=== PATIENT | male | born 1960 | race Caucasian/White ===

== ENCOUNTER 2019-11-19 09:03 | Outpatient (CLI) | payer MEDICARE, SELFPAY ==
--- NOTE | 2019-11-19 09:19 | XR_ITS ---
WS: [id number] Right shoulder, 2 views, 11/19/2019 Clinical Data: RIGHT SHOULDER PAIN Comparison: None. Findings: Patient has had a right total shoulder prosthesis inserted. The AC joint is normal. The prosthesis i s in good position with no loosening. The adjacent right clavicle, right scapula and right ribs are nonremarkable. The soft tissues are nor mal. XR/XR shoulder RT min 2V* [id number] Impression: Right shoulder arthroplasty.
== END 2019-11-19 09:04 | disposition home or self-care (01) ==
LOC: RAD 09:13
PROVIDERS: Family Provider Family Medicine; Visit Provider Orthopaedic Surgery
DX: M25.511 Pain in right shoulder (principal); Z96.611 Presence of right artificial shoulder joint
CPT/HCPCS: 73030

== ENCOUNTER → 2021-05-05 14:52 | Outpatient (BNVA) | payer MEDICARE, SELFPAY | PROVIDERS: Family Provider Family Medicine; Visit Provider Surgery | DX: Z20.822 Contact with and (suspected) exposure to COVID-19 (principal); Z01.812 Encounter for preprocedural laboratory examination | CPT/HCPCS: 87635 ==

== ENCOUNTER 2021-05-10 07:28 | Day surgery (SDC) | payer MEDICARE, SELFPAY ==
[2021-05-08 13:10] VITALS: BMI 39.5
--- NOTE | 2021-05-10 07:44 | P.ANESASSM_ITS ---
Pre-Anesthetic Assessment Pre-Anesthetic Assessment: Height/Weight: Height 1.85 m Weight 136.078 kg Preop Diagnosis: polyps Proposed Procedure: Operation Date: 05/10/21 08:45 Proposed Procedures p Colonoscopy 47583 Z12.11(Not Applicable) - Tae Correa MD Familial anesthetic complications: None Was Beta Isaías taken within 24 hours: Yes Was Clonidine taken within 24 hours: N/A Last intake: > 8 hrs Social: Social History: Tobacco Exam: Pre-Anes Outpt Exam: alert, oriented x 3, clear to auscultation bilaterally and regular rate & rhythm Airway: Cervical ROM: WNL MP: 1 Dentition: Full and Other (rotten, poor dentition) Pulmonary: Pulmonary: COPD CV/HEM: CV/HEM: HTN GI: GI: GERD Metabolic: Metabolic: DM and Thyroid Anesthetic Plan: ASA status: 3 Anesthesia: MAC Risk of > 500 ml blood loss (7ml/kg in children): No Data Anesthesia Cardiac Studies: 2 No Data to Display
[2021-05-10 08:04] VITALS: BP 110/75; PULSE 75; RESP 18; TEMP 36.3; O2SAT 99
[2021-05-10] MEDS: sodium chloride 0.9% 1,000 ML 30 ML IV (08:15)
--- NOTE | 2021-05-10 08:21 | W.PM.OPSFHP ---
Same Day Surgery H&P Indication for Procedure/HPI DATE OF PROCEDURE: May 10, 2021 CHIEF COMPLAINT/INDICATIONFOR SURGICAL PROCEDURE: I have loose stool PREOP DIAGNOSIS: polyps/change in bowel habits PLANNED PROCEDRUE: Operation Date: 05/10/21 08:45 Proposed Procedures p Colonoscopy 87600 Z12.11(Not Applicable) - Tae Correa MD This is a pleasant 61 years old gentleman had a colonoscopy about 10-12 years ago reports that he had polyps being removed. Over the past 6 months patient started to have loose stools nonbloody in nature. Denies family history of colon cancer or bleeding per rectum and he is referred to my practice for colonoscopy. ROS All systems have been reviewed negative except as per the above or per problem list. Medications/Allergies* Home Medications Medication Instructions Recorded Confirmed Type albuterol sulfate 90 mcg/actuation 2 puff INHALATION Q6H PRN 03/03/21 05/10/21 History aerosol inhaler budesonide-formoterol HFA 160 2 puff INHALATION BID 03/03/21 05/10/21 History mcg-4.5 mcg/actuation aerosol inhaler buspirone 10 mg tablet 10 mg PO TID 03/03/21 05/10/21 History diclofenac sodium 1 % topical gel 2 g TOPICAL QID 03/03/21 05/10/21 History duloxetine 60 mg capsule,delayed 60 mg PO DAILY 03/03/21 05/10/21 History release furosemide 40 mg tablet 40 mg PO DAILY 03/03/21 05/10/21 History gabapentin 800 mg tablet 800 mg PO TID 03/03/21 05/10/21 History glimepiride 2 mg tablet 2 mg PO QAM 03/03/21 05/10/21 History insulin degludec 100 unit/mL 16 unit SUBCUT DAILY ml 03/03/21 05/10/21 History subcutaneous solution levothyroxine 50 mcg capsule 50 mcg PO DAILY 03/03/21 05/10/21 History lisinopril 20 mg tablet 20 mg PO DAILY 03/03/21 05/10/21 History metformin 1,000 mg tablet 1,000 mg PO BID 03/03/21 05/10/21 History metoprolol tartrate 25 mg tablet 25 mg PO BID 03/03/21 05/10/21 History omeprazole 20 mg capsule,delayed 20 mg PO DAILY 03/03/21 05/10/21 History release quetiapine 25 mg tablet 25 mg PO DAILY 03/03/21 05/10/21 History spironolactone 25 mg tablet 25 mg PO DAILY 03/03/21 05/10/21 History Allergies/Adverse Reactions Allergy/AdvReac Type Severity Reaction Status Date / Time Penicillins Allergy Unknown Verified 05/10/21 08:25 Pertinent Exam Findings alert, oriented x 3, clear to auscultation bilaterally, regular rate & rhythm and procedure specific exam findings (Abdominal examination nontender nondistended soft morbidly obese) Recommendations Surgery/Procedure today (Colonoscopy possible biopsy) Other Plans: Plan of care; After thorough history and physical examination and reviewing the chart, plan to perform screening colonoscopy. I discussed with the patient in details the risks,benefits,alternatives and indications.The risk of aspiration, bleeding, soft tissue injury, perforation of the colon and other potential concomitant complications were explained to the patient in details,also the potential need for Laproscoy/Laparotomy to repair any related complications including but not limited to colectomy and or Closotomy.The patient understood this well and did agree to proceed. Rationale was carefully and clearly discussed with the patient.Appropriate informed consent have been reviewed and signed All questions have been answered and all concerns have been addressed to patient's satisfaction. Verbal and written Instructions were given to the patient for colonoscopy prep. Plan to send for stool studies as well Coding Level of Care Code Acute Magnetic Resonance Imaging Coordinator for Miko Gilbert
[2021-05-10 08:30] LABS: Glucose Point of Care 147 mg/dL (70-110)
[2021-05-10 08:48] VITALS: BP 115/74; PULSE 71; RESP 16; TEMP 36.5; O2SAT 93
--- NOTE | 2021-05-10 08:54 | ANE.PACU2 ---
Inpatient post-anesthesia follow up: Airway intact: Yes Vital signs: Temperature 97.4 F Pulse Rate 75 Respiratory Rate 18 Blood Pressure 110/75 Pulse Oximetry 99 Oxygen Delivery Me thod Room Air Oxygen Flow Rate Fraction of Inspir ed Oxygen Hydration adequate: Yes Nausea and vomiting: No Mental status: Baseline
[2021-05-10 09:03] VITALS: BP 112/62; PULSE 73; RESP 18; O2SAT 95
== END 2021-05-10 09:18 | disposition home or self-care (01) ==
PROVIDERS: Visit Provider Surgery
PROC: 0DJD8ZZ Inspection of Lower Intestinal Tract, Via Natural or Artificial Opening Endoscopic (ICD-10-PCS; CPT 45378; principal; 2021-05-10 08:45)
DX: R19.5 Other fecal abnormalities (principal); K57.30 Diverticulosis of large intestine without perforation or abscess without bleeding; J44.9 Chronic obstructive pulmonary disease, unspecified; I10 Essential (primary) hypertension; K21.9 Gastro-esophageal reflux disease without esophagitis; E11.9 Type 2 diabetes mellitus without complications
CPT/HCPCS: 36416; 45378; 82274; 82962; 83630; 87493; 87506; 96360; 99283; J2704; J7030

== ENCOUNTER 2021-05-30 11:30 | Outpatient (CLI) | payer MEDICARE, SELFPAY ==
[2021-05-30] MEDS: iohexol 300 mg/mL 50 mL Btl PO (12:05)
[2021-05-30 12:49] LABS: Basophils % 0.5 %; Eosinophils # 0.3 10^3/uL (0.0-0.8); Eosinophils % 3.9 %; Hematocrit 43.4 % (42.0-52.0); Hemoglobin 14.3 g/dL (11.7-16.6); Lymphocytes # 2.8 10^3/uL (0.8-4.8); Lymphocytes % 33.7 %; Mean Corpuscular HGB Conc 32.9 g/dL (30.0-36.0); Mean Corpuscular Hemoglobin 31.5 pg (28.0-34.0); Mean Corpuscular Volume 95.6 fL (80-94); Mean Platelet Volume 9.7 fL (7.4-10.4); Monocytes # 0.7 10^3/uL (0.2-0.9); Neutrophils # 4.31 10^3/uL (1.8-7.7); Neutrophils % 52.4 %; Nucleated Red Blood Cells % 0 %; Platelet Count 255 10^3/cmm (130-400); Red Blood Count 4.54 10^6/uL (4.1-5.3); Red Cell Distribution Width 12.9 % (12.1-15.1); White Blood Count 8.2 10^3/uL (4.0-10.0)
--- NOTE | 2021-05-30 13:00 | CT_ITS ---
WS: [id number] CT ABDOMEN AND PELVIS WITH CONTRAST HISTORY: K57.90 - Diverticulosis of intestine, part unspecified, TECHNIQUE: Imaging performed of the abdomen and pelvis with IV contrast. Single phase imaging of the abdomen. Coronal and sagittal reformats are submitted. All CT scans at [facility] use at least one of these dose optimization techniques: automated exposure control; mA and/or kV adjustment per patient size (includes targeted exams where dose is matched to clinical indication); or iterativ e reconstruction. IV CONTRAST: Omnipaque 300; 95 mL IV. Oral contrast: Yes. DLP: 931.67 mGycm COMPARISON: None available. Lower thorax: Lung bases are clear. Heart is normal size. No hiatal hernia. Liver/biliary system: Normal size with no intrahepatic dilatation. Gallbladder: Normal. No gallstones or wall thickening. No pericholecystic fluid. Pancreas: Normal size pancreas and pancreatic duct. No adjacent inflammation. Spleen: Normal size spleen with several granulomata. Adrenal glands: Normal. Right kidney: Normal size kidney. Mild perinephric stranding. Numerous small nonobstructing calcifica tions in the renal pelvis and several very small scattered hypodensities. No obstruction. Left kidney: Normal size kidney with mild perinephric stranding. Numerous nonobstructing calcificatio ns within the renal pelves and scattered hypodensities which are too small to characterize. Aorta: Mild atherosclerosis with no aneurysm. Lymphadenopathy: None. Free fluid: None. GI tract: No obstruction. Prior appendectomy. Numerous diverticula in the distal colon with no eviden ce for acute diverticulitis. Abdominal wall: Ventral abdominal wall hernia contains fat only. Pelvis: No free fluid or adenopathy within the pelvis. Bones: Unremarkable. CT/CT abdomen pelvis w con* [id number] IMPRESSION: 1. Numerous diverticula in the distal colon with no evidence for acute diverti culitis or obstruction. 2. Prior appendectomy. 3. Fat-containing umbilical hernia. 4. Bilateral nonobstructing renal calcifications and too small to characterize hypodensities within each kidney.
[2021-05-30 13:32] LABS: Alanine Aminotransferase 21 U/L (0-41); Albumin Level 4.1 g/dL (3.5-5.2); Alkaline Phosphatase 100 IU/L (40-130); Anion Gap 16.1 (5-19); Aspartate Amino Transferase 23 U/L (0-40); Blood Urea Nitrogen 7 mg/dL (8-23); C Reactive Protein 4.5 mg/L (0.0-4.9); Calcium 8.9 mg/dL (8.5-10.5); Carbon Dioxide 25 mmol/L (22-29); Chloride 102 mmol/L (98-107); Globulin 3.2 g/dL (1.3-4.6); Glomerular Filtration Rate 85.8 mL/min (90-130); Glucose 90 mg/dL (65-115); Osmolality Calculated 286 mOsm/kg (285-295); Potassium 4.1 mmol/L (3.5-5.1); Sodium 139 mmol/L (136-145); Thyroid Stimulating Hormone 0.95 uIU/mL (0.27-4.20); Total Bilirubin 0.2 mg/dL (0.15-1.2); Total Protein 7.3 g/dL (6.6-8.7)
[2021-05-30 13:37] LABS: Erythrocyte Sedimentation Rate 29 mm/hr (0-10)
[2021-05-30] MEDS: iohexol 350 mg/mL 100 mL Btl IV (13:44)
== END 2021-05-30 11:31 | disposition home or self-care (01) ==
PROVIDERS: Visit Provider Surgery
DX: R19.4 Change in bowel habit (principal); K57.90 Diverticulosis of intestine, part unspecified, without perforation or abscess without bleeding; Q42.8 Congenital absence, atresia and stenosis of other parts of large intestine; K42.9 Umbilical hernia without obstruction or gangrene; N20.0 Calculus of kidney
CPT/HCPCS: 36415; 74177; 80053; 84443; 85025; 85651; 86140; Q9967

== ENCOUNTER 2021-06-23 08:29 | Outpatient (CLI) | payer MEDICARE, SELFPAY ==
--- NOTE | 2021-06-23 08:30 | FL_ITS ---
WS: [id number] UPPER GI WITH AIR TECHNICAL: Double contrast upper GI with small bowel follow-through FLUOROSCOPY TIME: 3.5 minutes CLINICAL INFORMATION: R19.4 - Change in bowel habit COMPARISON: None. FINDINGS: Swallowing: Normal. Esophagus: Moderate esophageal dysmotility with corkscrew configuration and spasm in the distal esoph maik. Small esophageal hiatal hernia. Gastroesophageal reflux: Moderate reflux to the upper thoracic esophagus Stomach: Gastritis. Otherwise Normal double contrast stomach and stomach emptying. Duodenum: Small duodenal diverticulum measuring 2.3 cm Other findings: None. SMALL BOWEL EXAMINATION CLINICAL INFORMATION: R19.4 - Change in bowel habit COMPARISON: None. FINDINGS: Initial abdomen radiograph: Normal bowel gas pattern. No abnormal calcification. Contrast material: 50/50 thin barium sulfate suspension. Transit time: 105 Minutes (normal = 30 - 240 minutes) Normal small bowel transit time. No small bowel stricture, dilatation, adhesion, or mass. The termina l ileum is normal. Normal ileocecal valve. FL/FL upperGI air smallbowel ser* IMPRESSION: 1. Normal small bowel transit time. No small bowel stricture or obstructing ma ss. 2. Terminal ileum is normal. 3. Moderate esophageal dysmotility with corkscrew configuration and spasm in t he distal esophagus. Moderate reflux to the upper thoracic esophagus 4. Small esophageal hiatal hernia. 5. Gastritis. Otherwise normal double contrast stomach. 6. Small duodenal diverticulum measuring 2.3 cm
== END 2021-06-23 08:30 | disposition home or self-care (01) ==
PROVIDERS: PCP Nurse Practitioner Family; Visit Provider Surgery
DX: R19.4 Change in bowel habit (principal); R10.9 Unspecified abdominal pain; K21.9 Gastro-esophageal reflux disease without esophagitis; K44.9 Diaphragmatic hernia without obstruction or gangrene; K29.70 Gastritis, unspecified, without bleeding; K57.10 Diverticulosis of small intestine without perforation or abscess without bleeding
CPT/HCPCS: 74246; 74248

== ENCOUNTER 2021-08-03 10:15 | Outpatient (CLI) | payer OTHER, SELFPAY ==
--- NOTE | 2021-08-03 10:15 | US_ITS ---
WS: [id number] RIGHT UPPER QUADRANT ULTRASOUND HISTORY: R10.9 - Unspecified abdominal pain COMPARISON: None available. Liver: 18.7 cm in length. Mild enlargement of the liver. Coarsened echotexture throughout the liver w ith no mass or bile duct dilatation. Gallbladder: Normally distended gallbladder with no stones or wall thickening. CBD: 0.4 cm Pancreas: Completely obscured by bowel gas. Right kidney: 12.1 cm in length. Normal size and echogenicity. No hydronephrosis or mass. Aorta and IVC: Unremarkable abdominal aorta and IVC. No ascites. US/US gall bladder [id number] IMPRESSION: 1. Normal gallbladder. 2. Mild hepatomegaly and hepatic steatosis. 3. Pancreas not visualized.
== END 2021-08-03 10:16 | disposition home or self-care (01) ==
LOC: RAD 10:18
PROVIDERS: PCP Nurse Practitioner Family; Visit Provider Surgery
DX: K76.0 Fatty (change of) liver, not elsewhere classified (principal); R16.0 Hepatomegaly, not elsewhere classified; R10.9 Unspecified abdominal pain
CPT/HCPCS: 76705

== ENCOUNTER 2021-08-04 07:27 | Outpatient (CLI) | payer OTHER, SELFPAY ==
--- NOTE | 2021-08-04 08:00 | NM_ITS ---
WS: [id number] NUCLEAR MEDICINE HIDA SCAN WITH GALLBLADDER EJECTION FRACTION HISTORY: R10.9 - Unspecified abdominal pain COMPARISON: 08/03/2021 gallbladder ultrasound. TECHNIQUE: The patient was intravenously injected with 4.0 mCi of TC99m Mebrofenin. Immediate imaging over the right upper quadrant was followed by 5 minute image and additional images for a total of 60 minutes. Normal uptake of radiotracer throughout the liver. Activity identified in the gallbladder at 10 minutes and well distended by 60 minutes. Activity in the proximal small bowel was seen by 20 minutes. Good washout of the radiotracer from the liver by 60 minutes. The patient then drank 8 ounces of Ensure Plus. Ejection fraction at 60 minutes was 85%. Normal GB ej ection fraction is 35-75%. Post fatty meal symptoms: None. NM/NM hepatobiliary w phar* [id number] IMPRESSION: 1. Normal HIDA scan. 2. Normal gallbladder ejection fraction.
== END 2021-08-04 07:28 | disposition home or self-care (01) ==
PROVIDERS: PCP Nurse Practitioner Family; Visit Provider Surgery
DX: R10.9 Unspecified abdominal pain (principal)
CPT/HCPCS: 78227; A9537

== ENCOUNTER 2022-08-15 19:26 | Emergency (ER) | payer OTHER, SELFPAY ==
[2022-08-15 19:38] VITALS: BP 108/64; PULSE 110; RESP 16; TEMP 36.6; O2SAT 95; BMI 39.5
--- NOTE | 2022-08-15 20:01 | XRR_ITS ---
PROCEDURE INFORMATION: Exam: XR Chest Exam date and time: 08/15/2022 8:11 PM Age: 62 years old Clinical indication: Shortness of breath and other: Anxiety; Additional info: SOB TECHNIQUE: Imaging protocol: Radiologic exam of the chest. Views: 1 view. COMPARISON: CT abdomen pelvis w con* [id number] 05/30/2021 1:41 PM FINDINGS: Lungs: The lungs are clear. Pleural spaces: Unremarkable. No pleural effusion. No pneumothorax. Heart/Mediastinum: Unremarkable. No cardiomegaly. Diaphragm: The right diaphragm is elevated similar to prior CT. Bones/joints: Incidental right shoulder arthroplasty XR/XR chest 1V portable [id number] IMPRESSION: Lungs clear
[2022-08-15] MEDS: LORazepam 2 mg Tablet PO (20:14)
--- NOTE | 2022-08-15 20:39 | W.ED.PSYCHS ---
HPI - Psych General: Chief Complaint: Psychiatric Symptoms Stated Complaint: Conjestion\SOB Feels Weird Time Seen by Provider: 08/15/22 19:57 Source: patient Mode of arrival: ambulatory Limitations: no limitations History of Present Illness: 62-year-old male who states he has been having increased anxiety along with some anger episodes. He is a chronic alcoholic states he stopped drinking for a while but been drinking heavily again in the last 2 weeks he states he also had cough congestion he denies any suicidal or homicidal ideations he states that he has these angry episodes. Review of Systems Const: Denies: fever(s), chills, body aches or change in appetite Eyes: Denies: blurry vision or eye discomfort ENMT: Denies: throat pain or dental pain Card: Denies: chest pain Resp: Reports: non-productive cough GI: Denies: abdominal pain, nausea, vomiting or diarrhea : Denies: dysuria Musc: Denies: neck pain or back pain Skin/Breast: Denies: rash Neuro: Denies: headache(s) Psych: Reports: anxiety and mood swings Christos/Lymph: Denies: easy bruising All/Imm: Denies: urticaria PFSH ED PFSH: Medical History Diverticulosis Social History (Updated 08/15/22 @ 20:40 by Charla Rosen MD) Substance/Drug Use: current Physical Exam Const: COMMON NORMALS: patient oriented x3 GENERAL APPEARANCE: anxious and odor of alcohol detected HENMT: COMMON NORMALS: normocephalic and atraumatic HEAD & SCALP: normocephalic and atraumatic Eye: COMMON NORMALS: Equal, round and reactive pupils present and EOMs intact bilaterally PUPIL: Yes Equal, round and reactive pupils present Neck/C-Spine: COMMON NORMALS: full ROM and supple Chest: COMMONS NORMALS: normal inspection of the chest and normal palpation of entire chest wall Resp: COMMON NORMALS: normal respiratory effort, No retractions, No use of accessory muscles and clear to auscultation bilaterally AUSCULTATION: clear to auscultation bilaterally Cardio: COMMON NORMALS: regular rate, regular rhythm and No murmurs present (Cardio) RATE: regular rate RHYTHM: regular rhythm GI: COMMON NORMALS: Normal to inspection, nondistended, normoactive bowel sounds present, Soft to palpation, non-tender and no masses PALPATION: Yes Soft to palpation Extremity: COMMON NORMALS: normal to inspection and full ROM Neuro: COMMON NORMALS: patient oriented x3, moves all extremities and no focal motor deficits Psych: COMMON NORMALS: mental status grossly normal, Normal thought process present and cooperative THOUGHT PROCESS: Normal thought process present Skin: COMMON NORMALS: no rashes or lesions noted and no wounds GENERAL SKIN EXAM: no rashes or lesions noted Course Vital Signs: Vital signs: Vital Signs Temperature 98 F 08/15/22 19:38 Pulse Rate 110 H 08/15/22 19:38 Respiratory Rate 16 08/15/22 19:38 Blood Pressure 108/64 08/15/22 19:38 Pulse Oximetry 95 08/15/22 19:38 Oxygen Delivery Me thod 08/15/22 19:38 [facility] - Psych Medical Decision Making Patient presents here with anxiety along with anger outburst he is not homicidal or suicidal he has been drinking heavily and is intoxicated blood work here is normal I did offer him admission to the [facility] and he refused we will get him follow-up with [facility] he is return if worsening he is not actively homicidal or suicidal or threat to himself or others. Lab Data : 08/15/22 20:22 08/15/22 20:22 Radiology Impressions Chest X-Ray 08/15/22 20:01 IMPRESSION: Lungs clear Laboratory Results WBC 8.0 10^3/uL (4.0-10.0) 08/15/22 20: RBC 4.19 10^6/uL (4.1-5.3) 08/15/22 20:22 Hgb 14.2 g/dL (11.7-16.6) 08/15/22 20:22 Hct 40.3 % (42.0-52.0) L 08/15/22 20:22 MCV 96.2 fl (80-94) H 08/15/22 20: MCH 33.9 pg (28.0-34.0) 08/15/22 20: MCHC 35.2 g/dL (30.0-36.0) 08/15/22 20: RDW 14.1 % (12.1-15.1) 08/15/22 20:22 Plt Count 186 10^3/cmm (130-400) 08/15/22 20: MPV 8.9 fL (7.4-10.4) 08/15/22 20: Neut % (Auto) 50.8 % 08/15/22 20: Lymph % (Auto) 37.1 % 08/15/22 20: Trego % (Auto) 9.0 % 08/15/22: Eos % (Auto) 2.1 % 08/15/22: Baso % (Auto) 0.4 % 08/15/22: Neut # (Auto) 4.04 10^3/uL (1.8-7.7) 08/15/22: Lymph # (Auto) 3.0 10^3/uL (0.8-4.8) 08/15/22: Trego # (Auto) 0.7 10^3/uL (0.2-0.9) 08/15/22: Eos # (Auto) 0.2 10^3/uL (0.0-0.8) 08/15/22: Baso # (Auto) 0.0 10^3/uL (0.0-0.1) 08/15/22: Nucleated RBC % (auto) 0 % 08/15/22: Nucleated RBCs # 0.0 /100WBC 08/15/22 20: Sodium 141 mmol/L (136-145) 08/15/22 20: Potassium 4.4 mmol/L (3.5-5.1) 08/15/22: Chloride 100 mmol/L (98-107) 08/15/22 20: Carbon Dioxide 27 mmol/L (22-29) 08/15/22 20: Anion Gap 18.4 (5-19) 08/15/22 20: BUN 18 mg/dL (8-23) 08/15/22: Creatinine 1.1 mg/dL (0.7-1.2) 08/15/22 20: GFR Calculation 67.8 mL/min (90-130) L 08/15/22 20: Glucose 86 mg/dL (65-115) 08/15/22 20: POC Glucose 97 mg/dL (70-110) 08/15/22 20:37 Calculated Osmolality 293 mOsm/kg (285-295) 08/15/22 20:22 Calcium 8.6 mg/dL (8.5-10.5) 08/15/22 20:22 Total Bilirubin 0.3 mg/dL (0.15-1.2) 08/15/22 20:22 AST 74 U/L (0-40) H 08/15/22 20:22 ALT 64 U/L (0-41) H 08/15/22 20:22 Alkaline Phosphatase 134 U/L (40-130) H 08/15/22 20:22 Total Protein 7.5 g/dL (6.6-8.7) 08/15/22 20: Albumin 3.9 g/dL (3.5-5.2) 08/15/22 20: Globulin 3.6 g/dL (1.3-4.6) 08/15/22 20:22 Salicylates < 0.3 mg/dL (3-10) L 08/15/22 20:22 Urine Opiates Screen Negative ng/mL (Negative) 08/15/22 20:49 Acetaminophen < 5.0 ug/mL (10-30) L 08/15/22 20:22 Ur Barbiturates Screen Negative ng/mL (Negative) 08/15/22 20:49 Ur Phencyclidine Scrn Negative ng/mL (Negative) 08/15/22 20:49 Ur Amphetamines Screen Negative ng/mL (Negative) 08/15/22 20:49 U Benzodiazepines Scrn Negative ng/mL (Negative) 08/15/22 20:49 Urine Cocaine Screen Negative ng/mL (Negative) 08/15/22 20:49 U Marijuana (THC) Screen Positive ng/mL (Negative) H 08/15/22 20:49 Ethyl Alcohol 266 mg/dL (0-10) H 08/15/22 20:22 SARS-CoV-2 Ag (Rapid) negative (Negative) 08/15/22 20:24 Discharge Plan Discharge Patient Disposition: Home Clinical Impression: Acute anxiety, URI (upper respiratory infection), Alcohol intoxication Prescriptions: No Action spironolactone 25 mg tablet 25 mg PO DAILY budesonide-formoterol [Symbicort] 160-4.5 mcg/actuation HFA aerosol inhaler 2 puff inhalation BID diclofenac sodium [Voltaren] 1 % gel 2 g topical QID Rx Instructions: apply to single elbow, wrist or hand; for hand includes palm/fingers/back of hand gabapentin 800 mg tablet 800 mg PO TID quetiapine 25 mg tablet 25 mg PO DAILY buspirone 10 mg tablet 10 mg PO TID duloxetine 60 mg capsule,delayed release(DR/EC) 60 mg PO DAILY omeprazole 20 mg capsule,delayed release(DR/EC) 20 mg PO DAILY metformin 1,000 mg tablet 1,000 mg PO BID glimepiride 2 mg tablet 2 mg PO QAM Rx Instructions: administer with breakfast Tresiba U-100 Insulin 100 unit/mL solution 16 unit SUBCUT DAILY levothyroxine 50 mcg capsule 50 mcg PO DAILY metoprolol tartrate 25 mg tablet 25 mg PO BID lisinopril 20 mg tablet 20 mg PO DAILY furosemide 40 mg tablet 40 mg PO DAILY albuterol sulfate [ProAir HFA] 90 mcg/actuation HFA aerosol inhaler 2 puff inhalation Q6H PRN (Reason: as) Discharge Orders: Discharge ED (Routine); Ordered 08/15/22 Ordered By: Charla Rosen Referrals: Charmaine Zaidi APN [Primary Care Provider] - 1-3 days Discharge Diet: Advance as tolerated Discharge Activity: Resume usual activity Patient Instructions: Abuse of Alcohol (ED), Anxiety (ED) Coding Level of Care Code ED Psychiatric Social Worker Supervisor for Anne Marieg Fwd Exam Comprehensive
[2022-08-15 20:40] LABS: Basophils % 0.4 %; Eosinophils # 0.2 10^3/uL (0.0-0.8); Eosinophils % 2.1 %; Hematocrit 40.3 % (42.0-52.0); Hemoglobin 14.2 g/dL (11.7-16.6); Lymphocytes % 37.1 %; Mean Corpuscular HGB Conc 35.2 g/dL (30.0-36.0); Mean Corpuscular Hemoglobin 33.9 pg (28.0-34.0); Mean Corpuscular Volume 96.2 fl (80-94); Mean Platelet Volume 8.9 fL (7.4-10.4); Monocytes # 0.7 10^3/uL (0.2-0.9); Neutrophils # 4.04 10^3/uL (1.8-7.7); Neutrophils % 50.8 %; Nucleated Red Blood Cells % 0 %; Platelet Count 186 10^3/cmm (130-400); Red Blood Count 4.19 10^6/uL (4.1-5.3); Red Cell Distribution Width 14.1 % (12.1-15.1)
[2022-08-15] MEDS: haloperidol inj 5 mg/mL INJ 1 mL IM (20:40)
[2022-08-15 20:52] LABS: Glucose Point of Care 97 mg/dL (70-110)
[2022-08-15 20:59] LABS: Alanine Aminotransferase 64 U/L (0-41); Albumin Level 3.9 g/dL (3.5-5.2); Alcohol Level 266 mg/dL (0-10); Alkaline Phosphatase 134 U/L (40-130); Anion Gap 18.4 (5-19); Aspartate Amino Transferase 74 U/L (0-40); Blood Urea Nitrogen 18 mg/dL (8-23); Calcium 8.6 mg/dL (8.5-10.5); Carbon Dioxide 27 mmol/L (22-29); Chloride 100 mmol/L (98-107); Globulin 3.6 g/dL (1.3-4.6); Glomerular Filtration Rate 67.8 mL/min (90-130); Glucose 86 mg/dL (65-115); Osmolality Calculated 293 mOsm/kg (285-295); Potassium 4.4 mmol/L (3.5-5.1); Sodium 141 mmol/L (136-145); Total Bilirubin 0.3 mg/dL (0.15-1.2); Total Protein 7.5 g/dL (6.6-8.7)
[2022-08-15 21:02] LABS: Acetaminophen < 5.0 ug/mL (10-30); Salicylate < 0.3 mg/dL (3-10)
[2022-08-15 21:16] LABS: Amphetamines Screen Urine Negative (Negative); Barbiturates Screen Urine Negative (Negative); Benzodiazepines Screen Urine Negative (Negative); Cocaine Screen Urine Negative (Negative); Opiate Screen Urine Negative (Negative); PCP Screen Urine Negative (Negative); THC Screen Urine Positive (Negative)
[2022-08-15 21:26] LABS: SARS Covid-2 Antigen negative (Negative)
--- NOTE | 2022-08-16 10:00 | DCPLANNER ---
manager data had message to refer patient to [facility] for anxiety. manager data sent patients information to Elisha Hebert at [facility], intake market research coordinator. Patients information will be printed and reviewed. Clinic will call patient to discuss services.
== END 2022-08-15 22:05 | disposition home or self-care (01) ==
PROVIDERS: Emergency Provider Emergency Medicine; PCP Nurse Practitioner Family
DX: F41.9 Anxiety disorder, unspecified (principal); J06.9 Acute upper respiratory infection, unspecified; F10.129 Alcohol abuse with intoxication, unspecified; Y90.8 Blood alcohol level of 240 mg/100 ml or more; Z20.822 Contact with and (suspected) exposure to COVID-19; Z79.84 Long term (current) use of oral hypoglycemic drugs; Z79.4 Long term (current) use of insulin
CPT/HCPCS: 36416; 71045; 80053; 80306; 80307; 82962; 85025; 87426; 96372; 99285; J1630

== ENCOUNTER 2023-11-12 20:41 | Inpatient (IN) | payer MEDICARE, SELFPAY ==
[2023-11-12 20:42] VITALS: BP 160/103; PULSE 124; RESP 27; TEMP 36.7; O2SAT 93; BMI 39.5
--- NOTE | 2023-11-12 20:47 | XRR_ITS ---
PROCEDURE INFORMATION: Exam: XR Chest Exam date and time: 11/12/2023 8:55 PM Age: 63 years old Clinical indication: Shortness of breath; Additional info: Dyspnea TECHNIQUE: Imaging protocol: Radiologic exam of the chest. Views: 1 view. COMPARISON: CR XR chest 1V portable [id number] 08/15/2022 8:11 PM FINDINGS: Lungs: No focal consolidation. Pleural spaces: No evidence of pneumothorax or pleural effusion. Heart/Mediastinum: Cardiomediastinal silhouette is within normal limits. Bones/joints: No evidence of acute osseous abnormality. XR/XR chest 1V portable [id number] IMPRESSION: 1. No acute cardiopulmonary abnormality.
--- NOTE | 2023-11-12 20:53 | W.ED.SOB ---
HPI - SOB/Dyspnea General: Chief Complaint: Shortness of Breath/Dyspnea Stated Complaint: SOB Time Seen by Provider: 11/12/23 20:42 History of Present Illness: HPI Narrative: Patient presents to the ER with complaints of tachycardia shortness of breath. Patient's been having shortness of breath for about the last 3 days. EMS arrived on scene and he had a saturation about 89% on room air. They gave him 1 albuterol nebulizer treatment in route. Patient does admit to drinking every day and has had not had anything to drink since yesterday. Patient admitted he may be going through withdrawals. Patient does have a history of COPD and is on albuterol, budesonide/formoterol, Lasix, glimepiride/insulin, spironolactone patient appears very anxious and diaphoretic. Patient has 1-2 word dyspnea and can hardly sit still. Upon arrival his O2 sat was 93 to 97% on room air. Review of Systems General: Reports: 10 or more systems reviewed and unremarkable except in HPI and below PFSH ED PFSH: Medical History (Updated 11/13/23 @ 03:11 by Raza Lizarraga DO) History of hypertension History of diabetes mellitus, type II History of malignant melanoma Diverticulosis Surgical History (Updated 11/13/23 @ 02:55 by Frankie Ken MD) History of colonoscopy Social History (Updated 11/13/23 @ 02:56 by Frankie Ken MD) Smoking and tobacco/nicotine status: never used tobacco/nicotine Alcohol intake: current Alcohol intake frequency: 3 or more drinks per day Alcohol type: hard liquor Substance/Drug Use: never Physical Exam Const: COMMON NORMALS: no acute distress, average body habitus, patient oriented x3, no limitations, healthy appearing, alert and well nourished HENMT: COMMON NORMALS: normocephalic, atraumatic, hearing grossly normal bilaterally, external ears normal, Normal external nose present, moist oral mucous membranes and oropharynx normal HEAD & SCALP: normocephalic and atraumatic NOSE: Normal external nose present EXTERNAL EAR: Yes external ears normal Eye: COMMON NORMALS: Equal, round and reactive pupils present, EOMs intact bilaterally, conjunctivae normal and no scleral icterus CONJUNCTIVA: Yes conjunctivae normal PUPIL: Yes Equal, round and reactive pupils present Neck/C-Spine: COMMON NORMALS: no JVD Chest: COMMONS NORMALS: normal inspection of the chest and normal palpation of entire chest wall Resp: COMMON NORMALS: No retractions and No use of accessory muscles; negative for normal respiratory effort (Tachypneic 1-2 word dyspnea) and negative for clear to auscultation bilaterally (Decreased breath sounds bilateral) AUSCULTATION: not clear to auscultation bilaterally (Decreased breath sounds bilateral) Cardio: COMMON NORMALS: no JVD, regular rhythm, S1 normal heart sound present, S2 normal heart sound present, No gallops present (Cardio), No clicks present (Cardio) and No murmurs present (Cardio); negative for regular rate (Tachycardic) RATE: abnormal rate (Tachycardic) RHYTHM: regular rhythm HEART SOUNDS: S1 normal heart sound present and S2 normal heart sound present GI: COMMON NORMALS: Normal to inspection, nondistended, normoactive bowel sounds present, Soft to palpation, non-tender, No hepatosplenomegaly present and no masses PALPATION: Yes Soft to palpation and Yes No hepatosplenomegaly present Extremity: NARRATIVE EXTREMITY EXAM: Trace to 1+ edema bilateral lower extremities Neuro: COMMON NORMALS: patient oriented x3 SENSORIUM/ORIENTATION: Yes alert Course Vital Signs: Vital signs: Vital Signs Temperature 98.0 F 11/13/23 04:22 Pulse Rate 104 H 11/13/23 04:22 Respiratory Rate 16 11/13/23 04:22 Blood Pressure 147/106 11/13/23 04:22 Pulse Oximetry 91 11/13/23 04:22 Oxygen Delivery Me thod Room Air 11/13/23 02:46 MDM - SOB/Dyspnea Medical Decision Making Presented with shortness of breath tachycardia and tachypnea. Patient had a chest x-ray which was negative, chest CTA which was negative other than some possible biliary sludge or stones. Patient will have a CT scan of the abdomen. Blood work revealed a white count of 12,000 D-dimer 1.35, ABG was benign, potassium of 3.1, anion gap 34, creatinine 1.4, lactic acid of 10.4 and after bolus of 2 L normal saline and stayed 10.4. Elevated liver enzymes of AST 295, ALT 94, alk phos 182, total bilirubin of 2.5, BNP 145, procalcitonin 0.54, UA showed 3+ blood from a cath specimen, trace leukocyte Estrace, 1+ bacteria, urine drug screen was negative except for benzos which we gave him. Alcohol level was 215, we discussed this case with Dr. Osorio who agreed to place patient inpatient for further evaluation and treatment. We will get a CT scan of the abdomen to look at the liver secondary to elevated LFTs and total bilirubin. Differential Diagnosis Likely acute exacerbation of chronic obstructive airways disease Medical Records I reviewed the patient's medical records. Lab Data I reviewed the patient's lab results. 11/13/23 03:15 11/13/23 03:15 Labs/Radiology: Radiology Impressions Chest X-Ray 11/12/23 20:47 IMPRESSION: 1. No acute cardiopulmonary abnormality. Chest CTA 11/12/23 21:39 IMPRESSION: Negative CTA chest. No acute pathology identified. ADDENDUM: 11/13/23 0228 Findings were discussed with Dr. Ken at 11/13/2023 2:26 AM INTERNSHIP COORDINATOR. In addition to liver steatosis there is increased attenuation throughout the gallbladder lumen which may represent biliary sludge or stones. No wall thickening is identified. Biliary system is unremarkable in appearance without dilation apparent. Abdomen Ultrasound 11/13/23 00:44 IMPRESSION: 1. No acute findings. 2. Negative for biliary obstruction. 3. Increased echogenicity of the liver parenchyma is nonspecific and may represent chronic liver disease changes or hepatic steatosis. Abdomen/Pelvis CT 11/13/23 00:44 IMPRESSION: 1. Negative for acute abdominopelvic pathology. 2. Negative for biliary obstruction. 3. Liver steatosis. Laboratory Results WBC 9.16 10^3/uL (3.29-11.43) 11/13/23 03:15 RBC 3.59 10^6/uL (3.85-5.65) L 11/13/23 03:15 Hgb 11.90 g/dL (11.27-16.99) 11/13/23 03:15 Hct 34.1 % (37-53) L 11/13/23 03:15 MCV 95.0 fl (82-101) 11/13/23 03:15 MCH 33.1 pg (27-33) H 11/13/23 03:15 MCHC 34.9 g/dL (30-55) 11/13/23 03:15 RDW 14.7 % (12.1-15.1) 11/13/23 03:15 Plt Count 120 10^3/cmm (157-399) L D 11/13/23 03:15 MPV 9.4 fL (7.4-10.4) 11/13/23 03:15 Neut % (Auto) 91.4 % 11/13/23 03:15 Lymph % (Auto) 4.1 % 11/13/23 03:15 Isabella % (Auto) 3.6 % 11/13/23 03:15 Eos % (Auto) 0.0 % 11/13/23 03:15 Baso % (Auto) 0.1 % 11/13/23 03:15 Neut # (Auto) 8.37 10^3/uL (1.8-7.7) H 11/13/23 03:15 Lymph # (Auto) 0.4 10^3/uL (0.8-4.8) L 11/13/23 03:15 Isabella # (Auto) 0.3 10^3/uL (0.2-0.9) 11/13/23 03:15 Eos # (Auto) 0.0 10^3/uL (0.0-0.8) 11/13/23 03:15 Baso # (Auto) 0.0 10^3/uL (0.0-0.1) 11/13/23 03:15 Nucleated RBC % (auto) 0 % 11/13/23 03:15 Nucleated RBCs # 0.0 /100WBC 11/13/23 03:15 PT 14.10 SECONDS (12.1-14.9) 11/13/23 01:18 INR 1.06 (0.8-1.2) 11/13/23 01:18 D-Dimer 1.35 ug/mLFEU (0-0.59) H 11/12/23 21:05 Specimen Type Arterial 11/12/23 21:34 Sample Site Brachial, right 11/12/23 21:34 ABG pH 7.42 (7.35-7.45) 11/12/23 21:34 ABG pCO2 35.4 mmHg (35-45) 11/12/23 21:34 ABG pO2 72.9 mmHg (80.0-100.0) L 11/12/23 21:34 ABG HCO3 23.1 mmol/L (22-26) 11/12/23 21:34 ABG O2 Saturation 93.9 11/12/23 21:34 ABG Base Excess -0.9 mmol/L (-2.0-2.0) 11/12/23 21:34 Kristopher Test N/a 11/12/23 21:34 A-a O2 Gradient 4.2 mmHg (5-10) L 11/12/23 21:34 Hematocrit 39.0 % (42-52) L 11/12/23 21:34 Hgb O2 Saturation 94.1 % (95-100) L 11/12/23 21:34 Carboxyhemoglobin 1.5 %THgb (0.4-20.1) 11/12/23 21:34 Methemoglobin < 0.0 % (0.4-1.5) L 11/12/23 21:34 Total Hemoglobin 12.7 g/dL (14-18) L 11/12/23 21:34 Sodium 138.0 mmol/L (131-143) 11/12/23 21:34 Potassium 2.5 mmol/L (3.5-5.0) L 11/12/23 21:34 Glucose 222.0 mg/dL (70-115) H 11/12/23 21:34 Ionized Calcium 1.0 mmol/L (1.1-1.4) L 11/12/23 21:34 O2 Delivery Device Room air 11/12/23 21:34 Flying Squad Salesperson ID [email or web address] 11/12/23 21:34 Sodium 134 mmol/L (136-145) L 11/13/23 03:15 Potassium 2.9 mmol/L (3.5-5.1) L 11/13/23 03:15 Chloride 90 mmol/L (98-107) L 11/13/23 03:15 Carbon Dioxide 20 mmol/L (22-29) L 11/13/23 03:15 Anion Gap 26.9 (5-19) H 11/13/23 03:15 BUN 16 mg/dL (8-23) 11/13/23 03:15 Creatinine 1.2 mg/dL (0.7-1.2) 11/13/23 03:15 GFR Calculation 61.1 mL/min (90-130) L 11/13/23 03:15 Glucose 278 mg/dL (65-115) H 11/13/23 03:15 Calculated Osmolality 289 mOsm/kg (285-295) 11/13/23 03:15 Lactic Acid 6.7 mmol/L (0.5-2.2) H* 11/13/23 03:15 Lactic Acid (Sepsis) 10.4 mmol/L (0.5-2.2) H* 11/12/23 23:15 Calcium 8.1 mg/dL (8.5-10.5) L 11/13/23 03:15 Phosphorus 3.2 mg/dL (2.5-4.5) 11/13/23 03:15 Magnesium 1.6 mg/dL (1.7-2.3) L 11/13/23 03:15 Total Bilirubin 2.5 mg/dL (0.15-1.2) H 11/13/23 03:15 Direct Bilirubin 1.80 mg/dL (0.00-0.30) H 11/13/23 01:18 Indirect Bilirubin 0.80 11/13/23 01:18 GGT 1035 U/L (8-61) H 11/13/23 01:18 AST 265 U/L (0-40) H 11/13/23 03:15 ALT 92 U/L (0-41) H 11/13/23 03:15 Alkaline Phosphatase 158 U/L (40-130) H 11/13/23 03:15 Ammonia 45 umol/L (16-60) 11/13/23 01:18 Troponin T Baseline 32 ng/L (0-15) H 11/12/23 21:05 Troponin T 120 Minute 32.29 ng/L (0-15) H 11/12/23 23:15 Delta Troponin T 0.29 ABS# (0-10) 11/12/23 23:15 Troponin T Hi Sens 6Hr 28.39 ng/L (0-15) H 11/13/23 03:15 Troponin T Hi Sens 6Hr Delta -3.61 ng/L (0-12) L 11/13/23 03:15 C-Reactive Protein 18.0 mg/L (0.0-4.9) H 11/13/23 01:18 NT-Pro-B Natriuret Pep 142 pg/mL (0-125) H 11/12/23 21:05 Total Protein 6.6 g/dL (6.6-8.7) 11/13/23 03:15 Albumin 3.4 g/dL (3.5-5.2) L 11/13/23 03:15 Globulin 3.2 g/dL (1.3-4.6) 11/13/23 03:15 Lipase 66 U/L (13-60) H 11/13/23 01:18 Procalcitonin 0.54 ng/mL (0-0.5) H 11/12/23 21:05 TSH 1.13 uIU/mL (0.27-4.20) 11/12/23 21:05 Urine Color [place] (Yellow) 11/12/23 23:52 Urine Appearance Clear (CLEAR) 11/12/23 23:52 Urine pH 5 (5-7) 11/12/23 23:52 Ur Specific [place] 1.025 (1.005-1.030) 11/12/23 23:52 Urine Protein 2+ (Negative) H 11/12/23 23:52 Urine Glucose (UA) 2+ (Normal) H 11/12/23 23:52 Urine Ketones 1+ (Negative) H 11/12/23 23:52 Urine Blood 3+ (Negative) H 11/12/23 23:52 Urine Nitrate Negative (Negative) 11/12/23 23:52 Urine Bilirubin 1+ (Negative) H 11/12/23 23:52 Urine Urobilinogen 8 mg/dL (Negative) H 11/12/23 23:52 Ur Leukocyte Esterase Trace (Negative) H 11/12/23 23:52 Urine RBC 80-100 /hpf (0-2) H 11/12/23 23:52 Urine WBC 0-4 /hpf (0-5) H 11/12/23 23:52 Ur Squamous Epith Cells 0-4 /hpf (0-5) H 11/12/23 23:52 Amorphous Sediment 2+ /hpf 11/12/23 23:52 Urine Bacteria 1+ /hpf (NONE) H 11/12/23 23:52 Urine Opiates Screen Negative ng/mL (Negative) 11/12/23 23:52 Ur Barbiturates Screen Negative ng/mL (Negative) 11/12/23 23:52 Ur Phencyclidine Scrn Negative ng/mL (Negative) 01/23/24 23:52 Ur Amphetamines Screen Negative ng/mL (Negative) 11/12/23 23:52 U Benzodiazepines Scrn Positive ng/mL (Negative) H 11/12/23 23:52 Urine Cocaine Screen Negative ng/mL (Negative) 11/12/23 23:52 U Marijuana (THC) Screen Negative ng/mL (Negative) 11/12/23 23:52 Ethyl Alcohol 215 mg/dL (0-10) H 11/12/23 21:05 Serum Ketones Negative (Negative) 11/13/23 01:18 Influenza Type A Ag negative (Negative) 11/12/23 22:02 Influenza Type B Ag negative (Negative) 11/12/23 22:02 SARS-CoV-2 Ag (Rapid) negative (Negative) 11/12/23 22:02 All radiology interpretation(s) finalized by discharge EKG Data EKG 1: I personally reviewed and interpreted this EKG as follows: EKG Interpretation Date: 11/12/23 EKG interpretation time: 21:13 Prior EKG tracings: not available for review Interpretation: EKG shows ventricular rate 112 bpm, CO interval 150, QRS duration 109, QTc of 441, sinus tachycardia, Critical Care Time Critical Care Time: Critical Care Time: Yes Total Critical Care Time: 90 Attestation: The patient was emergently evaluated this patient's presentation and case had a high probability of a clinically significant, sudden, or life-threatening deterioration of the patient's initial critical presentation or condition which required my full and direct attention, intervention and personal management. Discharge Plan Discharge Patient Disposition: Admitted As Inpatient Admit Provider: Frankie Ken Clinical Impression: Alcohol withdrawal, Lactic acidosis, Metabolic acidosis, Alcoholic ketosis, Transaminitis Condition: Stable Coding Level of Care Code ED Polymerization Supervisor for Miko Gilbert
[2023-11-12] MEDS: LORazepam 2 mg/mL INJ 10 mL MDV 1 MG IVP (21:03)
[2023-11-12] MEDS: methylPREDNISolone sod succ 125 mg/2 mL INJ IVP (21:03)
[2023-11-12] MEDS: sodium chloride 0.9% 1,000 ML 999 ML IV ×2 (21:04→22:39)
--- NOTE | 2023-11-12 21:13 | ECG_ITS ---
[facility] Test Date: 2023-11-12 Pat Name: Luis M Tyler Department: Room: Gender: Male Safety Advisor: : 1960 Requested By: Raza Lizarraga Order Number: [id number] Edward MD: Joe Novak M.D. Measurements Intervals [place] Rate: 112 P: 63 RI: 150 QRS: 35 QRSD: 109 T: 50 QT: 375 QTc: 514 Interpretive Statements SINUS TACHYCARDIA ST DEVIATION AND MODERATE T-WAVE ABNORMALITY, CONSIDER LATERAL ISCHEMIA [-0.1+ mV T-WAVE IN I/aVL/V5/V6] ST DEVIATION AND MODERATE T-WAVE ABNORMALITY, CONSIDER INFERIOR ISCHEMIA [-0.1+ mV T-WAVE IN II/aVF] No previous ECG available for comparison Electronically Signed On 11-13-2023 21:36:23 NEWSPAPER DELIVERER by Joe Novak M.D. [email or web address]
[2023-11-12 21:14] LABS: Basophils % 0.2 %; Hematocrit 38.6 % (37-53); Lymphocytes # 0.9 10^3/uL (0.8-4.8); Lymphocytes % 7.1 %; Mean Corpuscular HGB Conc 35.2 g/dL (30-55); Mean Corpuscular Hemoglobin 33.7 pg (27-33); Mean Corpuscular Volume 95.5 fl (82-101); Monocytes # 1.4 10^3/uL (0.2-0.9); Monocytes % 11.1 %; Neutrophils # 10.38 10^3/uL (1.8-7.7); Neutrophils % 81.1 %; Nucleated Red Blood Cells % 0 %; Platelet Count 175 10^3/cmm (157-399); Red Blood Count 4.04 10^6/uL (3.85-5.65); Red Cell Distribution Width 14.6 % (12.1-15.1); White Blood Count 12.79 10^3/uL (3.29-11.43)
[2023-11-12 21:29] LABS: D Dimer 1.35 ug/mLFEU (0-0.59)
[2023-11-12 21:35] LABS: Troponin(5th) Baseline 32 ng/L (0-15)
[2023-11-12 21:38] LABS: Lactic Sepsis W/Reflex 10.4 mmol/L (0.5-2.2)
--- NOTE | 2023-11-12 21:39 | CTR_ITS ---
PROCEDURE INFORMATION: Exam: CTA Chest With Contrast Exam date and time: 11/12/2023 10:53 PM Age: 63 years old Clinical indication: Shortness of breath; Additional info: Dyspnea, tachycardia, tachypnea, elevated d dimer TECHNIQUE: Imaging protocol: Computed tomographic angiography of the chest with contrast. Exam focused on the arteries. 3D rendering (Not supervised by radiologist): MIP and/or 3D reconstructed images were created by the technologist. Radiation optimization: All CT scans at this facility use at least one of these dose optimization techniques: automated exposure control; mA and/or kV adjustment per patient size (includes targeted exams where dose is matched to clinical indication); or iterative reconstruction. Contrast material: OMNI 350; Contrast volume: 80 ml; Contrast route: INTRAVENOUS (IV); COMPARISON: CR (CHEST, ) 11/12/2023 8:55 PM RADIATION DOSE METRICS: Total DLP (mGy-cm): 603.68 FINDINGS: Pulmonary arteries: Normal. No pulmonary emboli. Aorta: Unremarkable. No aortic aneurysm. No aortic dissection. Thyroid: Symmetric thyroid lobes. Lungs: Unremarkable. No consolidation. No masses. Pleural spaces: Unremarkable. No pneumothorax. No pleural effusion. Heart: Unremarkable. No cardiomegaly. No pericardial effusion. Mediastinal space: Unremarkable thoracic esophagus. Lymph nodes: Unremarkable. No enlarged lymph nodes. Diaphragm: Asymmetric right diaphragm elevation. Liver: Diffuse liver steatosis. Kidneys and ureters: Multiple nonobstructing left kidney stones. Bones/joints: Unremarkable. No acute fracture. Soft tissues: Unremarkable. CT/CT angio chest PE protcl [id number] IMPRESSION: Negative CTA chest. No acute pathology identified.
[2023-11-12 21:44] LABS: ABG PCO2 35.4 mmHg (35-45); ABG PH Result 7.42 (7.35-7.45); Alveolar-Arterial Oxygen Gradi 4.2 mmHg (5-10); Base Excess ABG -0.9 mmol/L (-2.0-2.0); Blood Gas Sample Site Brachial, right; Blood Gas Sample Type Arterial; Carboxyhemoglobin 1.5 %THgb (0.4-20.1); HCO3 ABG 23.1 mmol/L (22-26); HGB O2 Sat 94.1 % (95-100); Methemoglobin < 0.0 % (0.4-1.5); Oxygen Device ROOM AIR; Oxygen Saturation ABG 93.9; PO2 ABG 72.9 mmHg (80.0-100.0); Potassium Level - ABG 2.5 mmol/L (3.5-5.0); Total Hemoglobin 12.7 g/dL (14-18)
[2023-11-12 21:46] LABS: NT Pro B Type Natriuretic Pept 142 pg/mL (0-125); Procalcitonin 0.54 ng/mL (0-0.5); Thyroid Stimulating Hormone 1.13 uIU/mL (0.27-4.20)
[2023-11-12 21:57] LABS: Alanine Aminotransferase 94 U/L (0-41); Albumin Level 3.9 g/dL (3.5-5.2); Alcohol Level 215 mg/dL (0-10); Alkaline Phosphatase 182 U/L (40-130); Blood Urea Nitrogen 17 mg/dL (8-23); Calcium 9.1 mg/dL (8.5-10.5); Carbon Dioxide 18 mmol/L (22-29); Chloride 85 mmol/L (98-107); Globulin 3.4 g/dL (1.3-4.6); Glomerular Filtration Rate 51.2 mL/min (90-130); Glucose 226 mg/dL (65-115); Magnesium 1.4 mg/dL (1.7-2.3); Osmolality Calculated 287 mOsm/kg (285-295); Sodium 134 mmol/L (136-145); Total Bilirubin 2.5 mg/dL (0.15-1.2); Total Protein 7.3 g/dL (6.6-8.7)
[2023-11-12 22:00] LABS: Anion Gap 34.1 (5-19); Ketone (Acetest) Serum Negative (Negative); Potassium 3.1 mmol/L (3.5-5.1)
[2023-11-12 22:01] LABS: Aspartate Amino Transferase 295 U/L (0-40)
[2023-11-12 22:24] LABS: Influenza A by IFA negative (Negative); Influenza B by IFA negative (Negative)
[2023-11-12] MEDS: ondansetron 2 mg/ML SDV 2 mL 4 MG IVP (22:36)
[2023-11-12] MEDS: LORazepam 2 mg/mL INJ 10 mL MDV IVP (22:39)
[2023-11-12 22:46] LABS: SARS Covid-2 Antigen negative (Negative)
[2023-11-12 22:57] LABS: Reflex Lactate Order REFLEX LACTIC ORDERD
[2023-11-12] MEDS: iohexol 350 mg/mL 500 mL Btl (per mL) IV (23:04)
[2023-11-12 23:53] LABS: Troponin 5 2HR 32.29 ng/L (0-15); Troponin 5 2HR Delta 0.29 ABS# (0-10)
[2023-11-12 23:58] LABS: Lactic Acid level (Lactate) 10.4 mmol/L (0.5-2.2)
[2023-11-13] VITALS (202 sets, daily range): BP systolic 93–203; BP diastolic 11–156; PULSE 52–130; RESP 15–36; TEMP 36.7–37.4; O2SAT 89–97
[2023-11-13 00:05] LABS: Amphetamines Screen Urine Negative (Negative); Barbiturates Screen Urine Negative (Negative); Benzodiazepines Screen Urine Positive (Negative); Cocaine Screen Urine Negative (Negative); Opiate Screen Urine Negative (Negative); PCP Screen Urine Negative (Negative); THC Screen Urine Negative (Negative)
[2023-11-13 00:07] LABS: Add Urine Microscopic? YES; Bilirubin Urine 1+ (Negative); Blood Urine 3+ (Negative); Glucose Urine UA 2+ (Normal); Ketones Urine 1+ (Negative); Leukocyte Esterase Urine Trace (Negative); Nitrate Urine Negative (Negative); Protein Urine 2+ (Negative); Specific Gravity, Urine 1.025 (1.005-1.030); Urine Appearance Clear (CLEAR); Urine Color Amber (Yellow); Urobilinogen Urine 8 mg/dL (Negative); pH Urine 5 (5-7)
[2023-11-13 00:08] LABS: Add Urine Culture? Yes; Amorphous Sediment Urine 2+ /hpf; Bacteria Urine 1+ /hpf; RBC Urine 80-100 /hpf (0-2); Squamous Epithelial Cell Urine 0-4 /hpf (0-5); WBC Urine 0-4 /hpf (0-5)
[2023-11-13] MEDS: sodium chloride 0.9% 1,000 ML 999 ML IV (00:31)
--- NOTE | 2023-11-13 00:44 | USR_ITS ---
PROCEDURE INFORMATION: Exam: US Abdomen Complete Exam date and time: 11/13/2023 2:18 AM Age: 63 years old Clinical indication: Other: Elevated lfts; Patient HX: Presenting with alcohol withdrawal; Additional info: Tranaminitis, TECHNIQUE: Imaging protocol: Real-time ultrasound of the abdomen with image documentation. Complete exam. COMPARISON: CT abdomen pelvis w con* [id number] 05/30/2021 1:41 PM FINDINGS: Liver: Increased echogenicity of the parenchyma. No mass. Gallbladder: Normal. No gallstones. There is no gallbladder wall thickening. Biliary ducts: Normal. No stones. No dilation. Pancreas: Visualized pancreas is unremarkable. Right kidney: Echogenic foci in the renal sinus consistent with nonobstructing stones. No mass. No hydronephrosis. Left kidney: Echogenic foci in a renal sinus consistent with nonobstructing stones. No mass. No hydronephrosis. Spleen: Normal. No splenomegaly. Aorta: Normal. No aneurysm. Inferior vena cava: Normal. US/US abdomen complete* [id number] IMPRESSION: 1. No acute findings. 2. Negative for biliary obstruction. 3. Increased echogenicity of the liver parenchyma is nonspecific and may represent chronic liver disease changes or hepatic steatosis.
--- NOTE | 2023-11-13 00:44 | CTR_ITS ---
PROCEDURE INFORMATION: Exam: CT Abdomen And Pelvis Without Contrast Exam date and time: 11/13/2023 4:07 AM Age: 63 years old Clinical indication: Abnormal findings; Abnormal lab test; Elevated liver enzymes and other: Hematuria; Additional info: Elevated lfts, t bili, lactic acid, hematuria, TECHNIQUE: Imaging protocol: Computed tomography of the abdomen and pelvis without contrast. Radiation optimization: All CT scans at this facility use at least one of these dose optimization techniques: automated exposure control; mA and/or kV adjustment per patient size (includes targeted exams where dose is matched to clinical indication); or iterative reconstruction. COMPARISON: 1. CT abdomen pelvis w con* [id number] 05/30/2021 1:[address] angio chest PE protcl [id number] 11/12/2023 10:53 PM RADIATION DOSE METRICS: Total DLP (mGy-cm): 1340.57 FINDINGS: Liver: Diffuse liver steatosis. Gallbladder and bile ducts: Hyperattenuating material in the gallbladder lumen may represent sludge or stones. Negative for wall thickening. Negative for biliary system dilation. Pancreas: Normal. No ductal dilation. Spleen: Normal. No splenomegaly. Adrenal glands: Normal. No mass. Kidneys and ureters: Collecting system contrast limits evaluation for urolithiasis detection, but nonobstructing renal stones are visible on comparison scans. No focal suspicious renal mass. Stomach and bowel: Mild severity diverticulosis coli. Negative for inflammatory bowel thickening. Negative for bowel obstruction. Negative for bowel perforation. Negative for pneumatosis intestinalis. Appendix: No evidence of appendicitis. Intraperitoneal space: Unremarkable. No free air. No significant fluid collection. Vasculature: Unremarkable. No abdominal aortic aneurysm. Lymph nodes: Unremarkable. No enlarged lymph nodes. Urinary bladder: The bladder is collapsed around a Farley catheter balloon. Small amount of intraluminal contrast is present. Reproductive: Unremarkable as visualized. Bones/joints: Unremarkable. No acute fracture. Soft tissues: Unremarkable. CT/CT abdomen pelvis wo con [id number] IMPRESSION: 1. Negative for acute abdominopelvic pathology. 2. Negative for biliary obstruction. 3. Liver steatosis.
[2023-11-13 01:36] LABS: INR 1.06 (0.8-1.2)
[2023-11-13 01:37] LABS: Ketone (Acetest) Serum Negative (Negative)
[2023-11-13 01:40] LABS: Lipase 66 U/L (13-60)
[2023-11-13 01:41] LABS: Ammonia 45 umol/L (16-60)
[2023-11-13 01:44] LABS: Gamma Glutamyl Transferase 1035 U/L (8-61); Total Bilirubin 2.6 mg/dL (0.15-1.2)
--- NOTE | 2023-11-13 02:29 | P.HP_ITS ---
Providers/Chief Complaint 2 Primary Care Provider: Charmaine Zaidi APN Chief Complaint: SOB History of Present Illness Luis M Tyler is a 63 year old male with a past medical history of hypothyroidism, insulin-dependent type 2 diabetes mellitus, hypertension, hyperlipidemia, obesity who presents to [facility] due to alcohol withdrawals. Currently patient is alert to person, to place, not to time, he is encephalopathic, I cannot get straightforward answers from him, he remains dazed, confused, he can follow some commands, when asked him when his last drink was, he had to think for a bit and could not really give me a straightforward answer, he thinks potentially 2 days ago he is not sure what form of alcohol he drank, but his sister at bedside said it was whiskey, he tells me that he has been through delirium tremens before, when asked him if he was ever intubated for alcohol withdrawals and he nods and says no, currently patient is having severe tremors of bilateral upper and lower extremities, tachycardic, denies any visual auditory hallucinations, does report [id number] and burning sensation of bilateral extremities, denies seeing or hearing things are not there, diaphoretic, does report feeling anxious, CIWA score 20, he has been given Ativan in the emergency room, continues to have severe tremors, tachycardia, appears sweaty, denies any chest pain, no shortness of breath, no abdominal pain, denies any history of esophageal varices, no hemoptysis Review of Systems 2 Const: Denies: fever(s) or chills Card: Denies: chest pain Resp: Denies: dyspnea GI: Denies: abdominal pain : Denies: flank pain or difficulty urinating Neuro: Reports: headache(s) Psych: Reports: anxiety Medications/Allergies Home Medications Medication Instructions Recorded Confirmed Last Taken Type albuterol sulfate 90 mcg/actuation 2 puff inhalation Q6H PRN as 03/03/21 01/30/23 Unknown History aerosol inhaler (ProAir HFA) budesonide-formoterol HFA 160 2 puff inhalation BID 03/03/21 01/30/23 Unknown History mcg-4.5 mcg/actuation aerosol inhaler (Symbicort) buspirone 10 mg tablet 10 mg PO TID 03/03/21 01/30/23 Unknown History diclofenac sodium 1 % topical gel 2 g topical QID 03/03/21 01/30/23 Unknown History (Voltaren) duloxetine 60 mg capsule,delayed 60 mg PO DAILY 03/03/21 01/30/23 Unknown History release furosemide 40 mg tablet 40 mg PO DAILY 03/03/21 01/30/23 Unknown History gabapentin 800 mg tablet 800 mg PO TID 03/03/21 01/30/23 Unknown History glimepiride 2 mg tablet 2 mg PO QAM 03/03/21 01/30/23 Unknown History insulin degludec 100 unit/mL 16 unit SUBCUT DAILY 03/03/21 01/30/23 Unknown History subcutaneous solution (Tresiba U-100 Insulin) levothyroxine 50 mcg capsule 50 mcg PO DAILY 03/03/21 01/30/23 Unknown History lisinopril 20 mg tablet 20 mg PO DAILY 03/03/21 01/30/23 Unknown History metformin 1,000 mg tablet 1,000 mg PO BID 03/03/21 01/30/23 Unknown History metoprolol tartrate 25 mg tablet 25 mg PO BID 03/03/21 01/30/23 05/10/21 History omeprazole 20 mg capsule,delayed 20 mg PO DAILY 03/03/21 01/30/23 Unknown History release quetiapine 25 mg tablet 25 mg PO DAILY 03/03/21 01/30/23 Unknown History spironolactone 25 mg tablet 25 mg PO DAILY 03/03/21 01/30/23 Unknown History Allergies Allergy/AdvReac Type Severity Reaction Status Date / Time Penicillins Allergy Unknown Verified 11/12/23 20:50 PFSH Acute 2 PFSH: Medical History (Updated 11/13/23 @ 02:58 by Frankie Ken MD) History of hypertension History of diabetes mellitus, type II History of malignant melanoma Diverticulosis Surgical History (Updated 11/13/23 @ 02:55 by Frankie Ken MD) History of colonoscopy Social History (Updated 11/13/23 @ 02:56 by Frankie Ken MD) Smoking and tobacco/nicotine status: never used tobacco/nicotine Alcohol intake: current Alcohol intake frequency: 3 or more drinks per day Alcohol type: hard liquor Substance/Drug Use: never Vitals/I&O/Wt Last Vital Signs Temp 98.0 F 11/12/23 20:42 Pulse 107 H 01/24/24 00:25 Resp 16 11/13/23 00:25 BP 158/11 11/13/23 00:25 Pulse Ox 92 11/13/23 00:25 O2 Del Method Room Air 11/12/23 20:42 11/12/23 11/12/23 11/13/23 14:59 22:59 06:59 Intake Total 1000 / 1000 1000 / 1999 Balance 1000 / 1000 1000 / 1999 Weight last 48 hrs Weight 136.078 kg Physical Exam 2 Const: COMMON NORMALS: no acute distress EXAM LIMITATIONS: altered mental status ORIENTATION/CONSCIOUSNESS: Yes awake, Yes oriented to person, Yes oriented to place and Yes confused; not oriented to time OTHER: Looks disheveled, diffusely sweaty, diffuse tremors coarse tremors at baseline HENMT: COMMON NORMALS: normocephalic HEAD & SCALP: normocephalic Eye: COMMON NORMALS: Equal, round and reactive pupils present and EOMs intact bilaterally Neck/C-Spine: COMMON NORMALS: no JVD Lymph: LYMPHATIC: no lymphadenopathy noted Resp: COMMON NORMALS: normal respiratory effort, No retractions, No use of accessory muscles and clear to auscultation bilaterally AUSCULTATION: clear to auscultation bilaterally Cardio: COMMON NORMALS: no JVD, regular rhythm, S1 normal heart sound present and S2 normal heart sound present RATE: tachycardic RHYTHM: regular rhythm HEART SOUNDS: S1 normal heart sound present and S2 normal heart sound present GI: COMMON NORMALS: Normal to inspection, nondistended, normoactive bowel sounds present, Soft to palpation and non-tender Extremity: COMMON NORMALS: no calf tenderness and no pedal edema Neuro: COMMON NORMALS: CN's II-XII intact bilaterally, moves all extremities and no focal motor deficits OTHER: Neurologic testing difficult, has extended very coarse tremors, Data 11/12/23 21:05 11/12/23 21:05 A&P Assessment and plan (1) Delirium tremens: (2) Alcohol withdrawal: (3) Lactic acidosis: (4) Transaminitis: (5) Metabolic acidosis: (6) Alcoholic ketosis: Plan Severe alcohol withdrawals, concerns for developing delirium tremens Plan -Admit to ICU [facility] -Start loading dose of phenobarbital 10 mg/kg ideal body weight, 40%/30%/30% every 3 hours, 320 mg IV, followed by 240 mg IV followed by 240 mg IV by 3 hours each dose, 8 hours after last dose start tapering dose 64.2 mg IV every 12 hours -Monitor closely -High risk of intubation -Keep n.p.o. high risk of aspiration -Neurochecks, aspiration precautions -IV fluids -Banana bag -Thiamine -Has metabolic acidosis, ketones within normal limits, IV fluids -Type 2 diabetes mellitus, low-dose sliding scale -Transaminitis, likely second alcoholism, reviewed CAT scan with radiology CT angiogram of the chest did not show any radiographic evidence of intra or extrahepatic biliary dilatation, does have gallbladder sludge will order a right upper quadrant ultrasound -Lactic acidosis, potentially related to metformin, or dehydration, continue IV fluids, monitor lactic acids every 4 hours -Placed on meropenem for now until gallbladder ultrasound comes back -Hypokalemia replace IV -Hypomagnesemia replace IV -Full code -Heparin for DVT prophylaxis Attestations 2 Medical Necessity Statement*: Patient requires hospitalization, inpatient, greater than 2 midnights, for delirium tremens, Diagnoses Delirium tremens F10.931 Alcohol withdrawal F10.939 Lactic acidosis E87.20 Transaminitis R74.01 Metabolic acidosis E87.20 Alcoholic ketosis E88.89
[2023-11-13] MEDS: pantoprazole 40 mg SDV IVP (02:41)
[2023-11-13] MEDS: ondansetron 2 mg/ML SDV 2 mL 4 MG IVP (02:41)
[2023-11-13] MEDS: PHENobarbital 130 mg/mL SDV 1 mL 320 MG IVP (02:44)
[2023-11-13] MEDS: magnesium sulfate premix 1 GM/100 ML PIGGYBACK IV (03:01)
[2023-11-13] MEDS: heparin 5,000 unit/mL INJ 1 mL 5000 UNIT SUBCUT ×2 (03:02→14:25)
[2023-11-13 03:21] LABS: Basophils % 0.1 %; Hematocrit 34.1 % (37-53); Lymphocytes # 0.4 10^3/uL (0.8-4.8); Lymphocytes % 4.1 %; Mean Corpuscular HGB Conc 34.9 g/dL (30-55); Mean Corpuscular Hemoglobin 33.1 pg (27-33); Mean Platelet Volume 9.4 fL (7.4-10.4); Monocytes # 0.3 10^3/uL (0.2-0.9); Monocytes % 3.6 %; Neutrophils # 8.37 10^3/uL (1.8-7.7); Neutrophils % 91.4 %; Nucleated Red Blood Cells % 0 %; Platelet Count 120 10^3/cmm (157-399); Red Blood Count 3.59 10^6/uL (3.85-5.65); Red Cell Distribution Width 14.7 % (12.1-15.1); White Blood Count 9.16 10^3/uL (3.29-11.43)
[2023-11-13 03:37] LABS: Troponin 5 6HR 28.39 ng/L (0-15)
[2023-11-13 03:38] LABS: Alanine Aminotransferase 92 U/L (0-41); Albumin Level 3.4 g/dL (3.5-5.2); Alkaline Phosphatase 158 U/L (40-130); Anion Gap 26.9 (5-19); Aspartate Amino Transferase 265 U/L (0-40); Blood Urea Nitrogen 16 mg/dL (8-23); Calcium 8.1 mg/dL (8.5-10.5); Carbon Dioxide 20 mmol/L (22-29); Chloride 90 mmol/L (98-107); Globulin 3.2 g/dL (1.3-4.6); Glomerular Filtration Rate 61.1 mL/min (90-130); Glucose 278 mg/dL (65-115); Magnesium 1.6 mg/dL (1.7-2.3); Osmolality Calculated 289 mOsm/kg (285-295); Phosphorus 3.2 mg/dL (2.5-4.5); Sodium 134 mmol/L (136-145); Total Bilirubin 2.5 mg/dL (0.15-1.2); Total Protein 6.6 g/dL (6.6-8.7); Troponin 5 6HR Delta -3.61 ng/L (0-12)
[2023-11-13 03:39] LABS: Lactic Sepsis W/Reflex 6.7 mmol/L (0.5-2.2)
[2023-11-13 03:41] LABS: Potassium 2.9 mmol/L (3.5-5.1)
[2023-11-13 05:04] LABS: Reflex Lactate Order REFLEX LACTIC ORDERD
[2023-11-13] MEDS: meropenem 1,000 MG in sodium chloride 0.9% (plus) 50 ML 100 MG IV ×3 (05:08→21:37)
[2023-11-13] MEDS: sodium chloride 0.9% 1,000 ML 100 ML IV (05:09)
[2023-11-13] MEDS: PHENobarbital 130 mg/mL SDV 1 mL 240 MG IVP ×3 (05:33→12:03)
[2023-11-13 07:50] LABS: Glucose Point of Care 274 mg/dL (70-110)
[2023-11-13] MEDS: multivitamin therapeutic Tablet 1 TAB PO (08:07)
[2023-11-13] MEDS: folic acid 1 mg Tablet PO (08:07)
[2023-11-13] MEDS: insulin lispro 100 unit/1 mL SUBCUT ×3 (08:08→17:57)
[2023-11-13] MEDS: levothyroxine 100 mcg SDV 25 MCG IVP (08:08)
[2023-11-13] MEDS: thiamine 100 mg Tablet PO (08:08)
--- NOTE | 2023-11-13 08:37 | PC.PHAR ---
PT CAN'T VERIFY MEDICATIONS....[facility] IS FAXING CURRENT MED LIST. 11/13/23
[2023-11-13 08:58] LABS: Lactic Sepsis W/Reflex 2.7 mmol/L (0.5-2.2)
--- NOTE | 2023-11-13 09:18 | PC.NURSE ---
patient agitated and trying to get out of bed entered patient room patient requesting a drink of water spoke with Dr denny in [place] about patients current diet orders received instructions to provide patient a clear liquid diet
[2023-11-13] MEDS: PHENobarbital 130 mg/mL SDV 1 mL 120 MG IVP (09:47)
[2023-11-13] MEDS: dexmedeTOMIDine 0.9 % NaCL 400 MCG/100 ML PREMIX IV (09:49)
[2023-11-13 10:15] LABS: Reflex Lactate Order REFLEX LACTIC ORDERD
[2023-11-13 11:24] LABS: Glucose Point of Care 247 mg/dL (70-110)
--- NOTE | 2023-11-13 12:03 | W.PM.EVENTAC ---
Event Note Event Note: Severe signs of withdrawal Will add phenobarbital every hour as needed Maximum dose in a day could be around 2 g considering 50 mill per kilo phenobarbital dose I will give high dose 240 mg every 1 hour on as needed basis along Precedex Continue meropenem for concern of aspiration pneumonia Replenish electrolytes Patient is endorsing drinking 1 pint of whiskey every day He can have clear liquid diet Clinically looks very dehydrated DVT prophylaxis heparin My threshold to intubate him in case of any withdrawal seizure will stay low will levothyroxine to p.o. regimen
[2023-11-13 12:36] LABS: Lactate (Lactic Acid level) 3.1 mmol/L (0.5-2.2)
[2023-11-13] MEDS: dextrose 5%-ns + KCl 40 40 MEQ/1,000 ML BAG 100 MEQ IV ×2 (12:54→22:17)
[2023-11-13 13:56] LABS: Reflex Lactate Order REFLEX LACTIC ORDERD
[2023-11-13] MEDS: dexmedeTOMIDine 0.9 % NaCL 400 MCG/100 ML PREMIX 23.58 MCG IV (15:27)
[2023-11-13 15:49] LABS: Lactic Acid level (Lactate) 1.8 mmol/L (0.5-2.2)
[2023-11-13 16:42] LABS: Lactate (Lactic Acid level) 1.9 mmol/L (0.5-2.2)
[2023-11-13 17:16] LABS: Glucose Point of Care 262 mg/dL (70-110)
--- NOTE | 2023-11-13 17:44 | PC.SLP ---
The patient is not currently alert enough to participate in an [employer]TER evaluation to assess swallowing. CONTACT [employer] BLOCKER AND CUTTER will attempt to follow-up the patient tomorrow.
[2023-11-13] MEDS: dexmedeTOMIDine 0.9 % NaCL 400 MCG/100 ML PREMIX 37.05 MCG IV (17:49)
--- NOTE | 2023-11-13 18:01 | PC.NURSE ---
Shift note: Patient agitated and restless for most of shift. See MAR for medications given. CIWA scale remained above 8. Precedex titrated for patient comfort and safety, per protocol. Patient oriented X4 at beginning of shift, by approximately noon, patient began uncontrollable shaking, increased heart rate, increased temperature, and sweating, patient pulling at carranza catheter. Dr. Moreno contacted via telephone orders given for precedex and an additional one time dose of phenobarbital. Patients sister given updates over the phone and at bedside. Patient has children who call for updates, in the morning patient was uncertain if he wanted information given to children, they are not listed as persons to give information to currently. Patient diet order updated in the morning, patient has difficulty with oral swabs and with liquids, patient will cough with each. Suction available at bedside, all drinks moved to bedside counter and patient instructed to use call light when they are desired, patient did so multiple times throughout this shift. Speech to evaluate patient when patient is able to participate. Patient frequently complained that he needed to get up and urinate, patient reoriented to carranza catheter, bladder scan revealed 0ml. urine output 650 for shift. Patient is resting in bed at this time, bed alarm set, call light in reach. See Documented stable vitals, patent is still on room air.
[2023-11-13 18:05] LABS: Reflex Lactate Order REFLEX LACTIC ORDERD
[2023-11-13 19:21] LABS: Lactic Acid level (Lactate) 1.6 mmol/L (0.5-2.2)
[2023-11-13] MEDS: dexmedeTOMIDine 0.9 % NaCL 400 MCG/100 ML PREMIX 40.42 MCG IV ×2 (20:31→23:33)
[2023-11-13 20:45] LABS: Lactate (Lactic Acid level) 1.5 mmol/L (0.5-2.2)
[2023-11-13 22:06] LABS: Reflex Lactate Order REFLEX LACTIC ORDERD
[2023-11-13 22:50] LABS: Lactic Acid level (Lactate) 1.6 mmol/L (0.5-2.2)
[2023-11-14] VITALS (68 sets, daily range): BP systolic 82–190; BP diastolic 54–114; PULSE 52–86; RESP 16–27; TEMP 37.2; O2SAT 90–97
[2023-11-14] MEDS: dexmedeTOMIDine 0.9 % NaCL 400 MCG/100 ML PREMIX 40.42 MCG IV (01:01)
[2023-11-14] MEDS: PHENobarbital 130 mg/mL SDV 1 mL 240 MG IVP ×2 (01:49→04:58)
[2023-11-14 02:34] LABS: Basophils % 0.2 %; Hematocrit 34.5 % (37-53); Lymphocytes # 0.8 10^3/uL (0.8-4.8); Lymphocytes % 12.6 %; Mean Corpuscular HGB Conc 34.2 g/dL (30-55); Mean Corpuscular Hemoglobin 33.5 pg (27-33); Monocytes # 0.6 10^3/uL (0.2-0.9); Monocytes % 9.3 %; Neutrophils # 4.72 10^3/uL (1.8-7.7); Neutrophils % 77.4 %; Nucleated Red Blood Cells % 0.5 %; Platelet Count 84 10^3/cmm (157-399); Red Blood Count 3.52 10^6/uL (3.85-5.65)
[2023-11-14 03:01] LABS: Alanine Aminotransferase 100 U/L (0-41); Albumin Level 3.2 g/dL (3.5-5.2); Alkaline Phosphatase 142 U/L (40-130); Anion Gap 17.3 (5-19); Aspartate Amino Transferase 219 U/L (0-40); Blood Urea Nitrogen 20 mg/dL (8-23); Calcium 8.2 mg/dL (8.5-10.5); Carbon Dioxide 26 mmol/L (22-29); Chloride 98 mmol/L (98-107); Creatinine Clr Calc Pharmacy 90.7484; Globulin 3.1 g/dL (1.3-4.6); Glomerular Filtration Rate 61.1 mL/min (90-130); Glucose 232 mg/dL (65-115); Magnesium 1.8 mg/dL (1.7-2.3); Osmolality Calculated 296 mOsm/kg (285-295); Phosphorus 1.5 mg/dL (2.5-4.5); Potassium 3.3 mmol/L (3.5-5.1); Sodium 138 mmol/L (136-145); Total Bilirubin 2.7 mg/dL (0.15-1.2); Total Protein 6.3 g/dL (6.6-8.7)
[2023-11-14 03:03] LABS: Lactate (Lactic Acid level) 1.4 mmol/L (0.5-2.2)
[2023-11-14] MEDS: pantoprazole 40 mg SDV IVP (03:25)
[2023-11-14] MEDS: meropenem 1,000 MG in sodium chloride 0.9% (plus) 50 ML 100 MG IV ×3 (03:25→19:49)
[2023-11-14] MEDS: heparin 5,000 unit/mL INJ 1 mL 5000 UNIT SUBCUT ×3 (03:25→16:09)
[2023-11-14] MEDS: dexmedeTOMIDine 0.9 % NaCL 400 MCG/100 ML PREMIX 37.05 MCG IV (04:29)
[2023-11-14] MEDS: dexmedeTOMIDine 0.9 % NaCL 400 MCG/100 ML PREMIX 33.68 MCG IV (05:47)
[2023-11-14] MEDS: lanolin oint 7 gm 1 APPLIC TOPICAL (06:09)
[2023-11-14 07:27] LABS: Glucose Point of Care 221 mg/dL (70-110)
[2023-11-14] MEDS: magnesium oxide 400 mg tablet PO ×2 (08:23→17:02)
[2023-11-14] MEDS: thiamine 100 mg Tablet PO (08:23)
[2023-11-14] MEDS: insulin lispro 100 unit/1 mL SUBCUT (08:23)
[2023-11-14] MEDS: multivitamin therapeutic Tablet 1 TAB PO (08:23)
[2023-11-14] MEDS: folic acid 1 mg Tablet PO (08:23)
[2023-11-14] MEDS: dexmedeTOMIDine 0.9 % NaCL 400 MCG/100 ML PREMIX 16.84 MCG IV (09:05)
--- NOTE | 2023-11-14 09:36 | PC.NURSE ---
weaning off precedex gtt at this time now comfortable and talking with staff charged phone and gave back to pt able to take po meds at this time .. full liquids given
--- NOTE | 2023-11-14 10:43 | PM.PN ---
Subjective Subjective: This morning patient is much calmer as compared to yesterday He was stating that he is anxious for his dog and mother As per my discussion with case packer and sealer patient does have a lot of help from the family I encouraged him to stay in the hospital today we might be able to discharge by tomorrow We are advancing his diet Continue phenobarb Patient is extremely dehydrated Discontinue Precedex continue IV fluids Vitals/I&O/Wt Last Vital Signs Temp 99 F 11/14/23 00:30 Pulse 74 11/14/23 10:00 Resp 20 H 11/14/23 10:00 BP 137/79 11/14/23 10:00 Pulse Ox 93 11/14/23 08:00 O2 Del Method Room Air 11/13/23 13:35 11/13/23 11/14/23 11/14/23 22:59 06:59 14:59 Intake Total 1379.047 / 2031.799 357.448 / 2389.247 1453.007 / 1453.007 Output Total 650 / 850 350 / 1200 Balance 729.047 / 1181.799 7.448 / 7878.408 8384.007 / 1453.007 Weight last 48 hrs Weight 133.81 kg Weight 134.717 kg Weight 134.717 kg Weight 136.078 kg Physical Exam Narrative: Patient is much calmer today Awake and alert Sinus rhythm Abdomen soft Nonfocal neuroexam GCS 15 S1, S2 Signs of dehydration present Currently room air Urinary Catheter Management: Farley Latex: Cath Placed During This Visit: yes Reason for Continuing Indwelling Catheter: Accurate Measurement of Urinary Output in Critically Ill Patients Urinary Catheter Date of Insertion: 11/13/23 Urinary Catheter Time of Insertion: 04:21 Data 11/14/23 02:27 11/14/23 02:27 A&P Assessment and plan (1) Alcohol withdrawal: (2) Transaminitis: (3) Lactic acidosis: (4) Metabolic acidosis: (5) Alcoholic ketosis: (6) Hypokalemia: (7) Alcoholic hepatitis: Plan Discontinue Precedex Continue phenobarbital for 1 more day Likely discharge tomorrow Replenish electrolytes Give potassium Discontinue D5 normal saline and switch to normal saline without potassium Full code Change diet to regular Physical therapy requested Attestations Medical Necessity Statement*: Discharge likely tomorrow Diagnoses Alcohol withdrawal F10.939 Transaminitis R74.01 Lactic acidosis E87.20 Metabolic acidosis E87.20 Alcoholic ketosis E88.89 Hypokalemia E87.6 Alcoholic hepatitis K70.10
[2023-11-14] MEDS: potassium chloride ER 20 mEq Tablet 40 MEQ PO (10:59)
[2023-11-14] MEDS: sodium chloride 0.9% 1,000 ML 100 ML IV ×2 (10:59→19:50)
[2023-11-14 11:23] LABS: Glucose Point of Care 138 mg/dL (70-110)
--- NOTE | 2023-11-14 15:34 | PC.NURSE ---
son called this am requesting lab result and toxicology results staff asked pt if it was ok to talk to him about specific result and he replied no.. he also related at this time not to give any information to his daughter... later this am sister came in and was talking to him and got him to agree to give information to son but not to daughter,, later did talk to on his cell phon and related general results and would probably go home tommorow. Later pt called me to room had daughter on speaker phone requesting i give her information at the same time as shacking his head no.... and winking at me. pt educated on hippa requlation and that he should only involve staff when allowed to give information
[2023-11-14 16:53] LABS: Glucose Point of Care 125 mg/dL (70-110)
[2023-11-14] MEDS: phosphorus 250 mg Tablet PO (17:02)
--- NOTE | 2023-11-14 17:46 | PC.NURSE ---
report called and transfered to room 278
--- NOTE | 2023-11-14 17:52 | PC.NURSE ---
Assumed care of pt at 1745.
[2023-11-14 22:02] LABS: Glucose Point of Care 95 mg/dL (70-110)
[2023-11-15] VITALS: BP 113/71; PULSE 83; RESP 16; TEMP 36.8; O2SAT 95
[2023-11-15] MEDS: meropenem 1,000 MG in sodium chloride 0.9% (plus) 50 ML 100 MG IV (03:01)
[2023-11-15 04:00] VITALS: BP 144/80; PULSE 76; RESP 19; TEMP 36.8; O2SAT 96
[2023-11-15] MEDS: levothyroxine 25 mcg Tablet PO (05:25)
[2023-11-15] MEDS: sodium chloride 0.9% 1,000 ML 100 ML IV (05:25)
[2023-11-15 05:58] VITALS: PULSE 82
[2023-11-15 06:00] VITALS: BMI 41.7
[2023-11-15 06:35] LABS: Anion Gap 14.1 (5-19); Blood Urea Nitrogen 12 mg/dL (8-23); Calcium 8.1 mg/dL (8.5-10.5); Carbon Dioxide 26 mmol/L (22-29); Chloride 98 mmol/L (98-107); Creatinine Clr Calc Pharmacy 135.6376; Glomerular Filtration Rate 97.6 mL/min (90-130); Glucose 107 mg/dL (65-115); Osmolality Calculated 280 mOsm/kg (285-295); Potassium 3.1 mmol/L (3.5-5.1); Sodium 135 mmol/L (136-145)
[2023-11-15 06:45] LABS: Glucose Point of Care 103 mg/dL (70-110)
[2023-11-15 07:09] VITALS: BP 170/64; PULSE 85; RESP 16; TEMP 37.2; O2SAT 95
[2023-11-15] MEDS: multivitamin therapeutic Tablet 1 TAB PO (08:14)
[2023-11-15] MEDS: folic acid 1 mg Tablet PO (08:14)
[2023-11-15] MEDS: magnesium oxide 400 mg tablet PO (08:14)
[2023-11-15] MEDS: phosphorus 250 mg Tablet PO (08:14)
[2023-11-15] MEDS: thiamine 100 mg Tablet PO (08:14)
--- NOTE | 2023-11-15 10:16 | P.DS_ITS ---
Discharge Providers Date of Admission: 11/13/23 03:26 Date of Discharge: November 15, 2023 Attending Provider at Admission: Frankie Ken MD Attending Provider at Discharge: Cornelia Moreno MD Primary Care Provider: Charmaine Zaidi APN Diagnoses at Discharge Discharge Diagnosis (1) Alcohol withdrawal: Status: Acute (2) Transaminitis: Status: Acute (3) Lactic acidosis: Status: Acute (4) Metabolic acidosis: Status: Acute (5) Alcoholic ketosis: Status: Acute (6) Hypokalemia: Status: Acute (7) Alcoholic hepatitis: Status: Acute Reason for Visit Reason for Visit: SOB Hospital Course Hospital Course 63 male who has been dealing with social stressors, presented to the hospital with alcohol withdrawal symptoms, he was given high doses of phenobarbital 240 mg IV every 1 hour on day 1 which improved his symptoms, Precedex was discontinued after 6 to 8 hours, patient will transition to [facility], his CIWA score improved signs of withdrawal improved significantly, patient is stating that he has decided to quit alcohol, he is anxious to return home, his electrolytes were replenished during hospitalization, he was given IV fluids for his dehydration. Phenobarbital half-life is about 96 hours he would not need phenobarbital at the time of discharge I will continue thiamine along folic acid and magnesium supplementation. I do suspect he has macroglossia for vitamin deficiency. Physical Exam Narrative: GCS 15 Awake and alert Pleasant work No active signs of alcohol withdrawal Pleasant and cooperative Urinary Catheter Management: Farley Latex: Cath Placed During This Visit: yes Reason for Continuing Indwelling Catheter: Acute Urinary Retention or Obstruction Urinary Catheter Date of Insertion: 11/13/23 Urinary Catheter Time of Insertion: 04:21 Discharge Data Studies Completed and Pending Completed Studies During Hospitalization Category Date Time Status CT abdomen pelvis wo con [id number] Stat Cat Scan 11/13/23 00:[address] angio chest PE protcl [id number] Stat Cat Scan 11/12/23 21:39 Completed XR chest 1V portable [id number] Stat Exams 11/12/23 20:47 Completed US abdomen complete* [id number] Stat Ultrasound 11/13/23 00:44 Completed Pending at discharge Category Date Time Status Blood Cultures ([facility]) Routine Lab 11/12/23 21:55 Results Blood Cultures ([facility]) Routine Lab 11/12/23 21:56 Results Urine Culture Stat Lab 11/12/23 23:52 Results Radiology Impressions Chest X-Ray 11/12/23 20:47 IMPRESSION: 1. No acute cardiopulmonary abnormality. Chest CTA 11/12/23 21:39 IMPRESSION: Negative CTA chest. No acute pathology identified. ADDENDUM: 11/13/23 0228 Findings were discussed with Dr. Ken at 11/13/2023 2:26 AM OCEANIC SCIENCES PROFESSOR. In addition to liver steatosis there is increased attenuation throughout the gallbladder lumen which may represent biliary sludge or stones. No wall thickening is identified. Biliary system is unremarkable in appearance without dilation apparent. Abdomen Ultrasound 11/13/23 00:44 IMPRESSION: 1. No acute findings. 2. Negative for biliary obstruction. 3. Increased echogenicity of the liver parenchyma is nonspecific and may represent chronic liver disease changes or hepatic steatosis. Abdomen/Pelvis CT 11/13/23 00:44 IMPRESSION: 1. Negative for acute abdominopelvic pathology. 2. Negative for biliary obstruction. 3. Liver steatosis. Laboratory Results WBC 6.10 10^3/uL (3.29-11.43) 11/14/23 02:27 RBC 3.52 10^6/uL (3.85-5.65) L 11/14/23 02:27 Hgb 11.80 g/dL (11.27-16.99) 11/14/23 02:27 Hct 34.5 % (37-53) L 11/14/23 02:27 MCV 98.0 fl (82-101) 11/14/23 02:27 MCH 33.5 pg (27-33) H 11/14/23 02:27 MCHC 34.2 g/dL (30-55) 11/14/23 02:27 RDW 15.0 % (12.1-15.1) 11/14/23 02:27 Plt Count 84 10^3/cmm (157-399) L 11/14/23 02:27 MPV 10.0 fL (7.4-10.4) 11/14/23 02:27 Neut % (Auto) 77.4 % 11/14/23 02:27 Lymph % (Auto) 12.6 % 11/14/23 02:27 [place] % (Auto) 9.3 % 11/14/23 02:27 Eos % (Auto) 0.0 % 11/14/23 02:27 Baso % (Auto) 0.2 % 11/14/23 02:27 Neut # (Auto) 4.72 10^3/uL (1.8-7.7) 11/14/23 02:27 Lymph # (Auto) 0.8 10^3/uL (0.8-4.8) 11/14/23 02:27 [place] # (Auto) 0.6 10^3/uL (0.2-0.9) 11/14/23 02:27 Eos # (Auto) 0.0 10^3/uL (0.0-0.8) 11/14/23 02:27 Baso # (Auto) 0.0 10^3/uL (0.0-0.1) 11/14/23 02: Nucleated RBC % (auto) 0.5 % 11/14/23 02: Nucleated RBCs # 0.0 /100WBC 11/14/23 02:27 PT 14.10 SECONDS (12.1-14.9) 11/13/23 01:18 INR 1.06 (0.8-1.2) 11/13/23 01:18 D-Dimer 1.35 ug/mLFEU (0-0.59) H 11/12/23 21:05 Specimen Type Arterial 11/12/23 21:34 Sample Site Brachial, right 11/12/23 21:34 ABG pH 7.42 (7.35-7.45) 11/12/23 21:34 ABG pCO2 35.4 mmHg (35-45) 11/12/23 21:34 ABG pO2 72.9 mmHg (80.0-100.0) L 11/12/23 21:34 ABG HCO3 23.1 mmol/L (22-26) 11/12/23 21:34 ABG O2 Saturation 93.9 11/12/23 21:34 ABG Base Excess -0.9 mmol/L (-2.0-2.0) 11/12/23 21:34 Kristopher Test N/a 11/12/23 21:34 A-a O2 Gradient 4.2 mmHg (5-10) L 11/12/23 21:34 Hematocrit 39.0 % (42-52) L 11/12/23 21:34 Hgb O2 Saturation 94.1 % (95-100) L 11/12/23 21:34 Carboxyhemoglobin 1.5 %THgb (0.4-20.1) 11/12/23 21:34 Methemoglobin < 0.0 % (0.4-1.5) L 11/12/23 21:34 Total Hemoglobin 12.7 g/dL (14-18) L 11/12/23 21:34 Sodium 138.0 mmol/L (131-143) 11/12/23 21:34 Potassium 2.5 mmol/L (3.5-5.0) L 11/12/23 21:34 Glucose 222.0 mg/dL (70-115) H 11/12/23 21:34 Ionized Calcium 1.0 mmol/L (1.1-1.4) L 11/12/23 21:34 O2 Delivery Device Room air 11/12/23 21:34 [employer]eral Workers ID [email or web address] 11/12/23 21:34 Sodium 135 mmol/L (136-145) L 11/15/23 06:02 Potassium 3.1 mmol/L (3.5-5.1) L 11/15/23 06:02 Chloride 98 mmol/L (98-107) 11/15/23 06:02 Carbon Dioxide 26 mmol/L (22-29) 11/15/23 06:02 Anion Gap 14.1 (5-19) 11/15/23 06:02 BUN 12 mg/dL (8-23) 11/15/23 06:02 Creatinine 0.8 mg/dL (0.7-1.2) 11/15/23 06:02 GFR Calculation 97.6 mL/min (90-130) 11/15/23 06:02 Glucose 107 mg/dL (65-115) 11/15/23 06:02 POC Glucose 103 mg/dL (70-110) 11/15/23 06:42 Calculated Osmolality 280 mOsm/kg (285-295) L 11/15/23 06:02 Lactic Acid 2.7 mmol/L (0.5-2.2) H 11/13/23 08:24 Lactic Acid (Sepsis) 1.6 mmol/L (0.5-2.2) 11/13/23 22:23 Lactate 1.4 mmol/L (0.5-2.2) 11/14/23 02:27 Calcium 8.1 mg/dL (8.5-10.5) L 11/15/23 06:02 Phosphorus 1.5 mg/dL (2.5-4.5) L D 11/14/23 02:27 Magnesium 1.8 mg/dL (1.7-2.3) 11/14/23 02:27 Total Bilirubin 2.7 mg/dL (0.15-1.2) H 11/14/23 02:27 Direct Bilirubin 1.80 mg/dL (0.00-0.30) H 11/13/23 01:18 Indirect Bilirubin 0.80 11/13/23 01:18 GGT 1035 U/L (8-61) H 11/13/23 01:18 AST 219 U/L (0-40) H 11/14/23 02:27 ALT 100 U/L (0-41) H 11/14/23 02:27 Alkaline Phosphatase 142 U/L (40-130) H 11/14/23 02:27 Ammonia 45 umol/L (16-60) 11/13/23 01:18 Troponin T Baseline 32 ng/L (0-15) H 11/12/23 21:05 Troponin T 120 Minute 32.29 ng/L (0-15) H 11/12/23 23:15 Delta Troponin T 0.29 ABS# (0-10) 11/12/23 23:15 Troponin T Hi Sens 6Hr 28.39 ng/L (0-15) H 11/13/23 03:15 Troponin T Hi Sens 6Hr Delta -3.61 ng/L (0-12) L 11/13/23 03:15 C-Reactive Protein 18.0 mg/L (0.0-4.9) H 11/13/23 01:18 NT-Pro-B Natriuret Pep 142 pg/mL (0-125) H 11/12/23 21:05 Total Protein 6.3 g/dL (6.6-8.7) L 11/14/23 02:27 Albumin 3.2 g/dL (3.5-5.2) L 11/14/23 02:27 Globulin 3.1 g/dL (1.3-4.6) 11/14/23 02:27 Lipase 66 U/L (13-60) H 11/13/23 01:18 Procalcitonin 0.54 ng/mL (0-0.5) H 11/12/23 21:05 TSH 1.13 uIU/mL (0.27-4.20) 11/12/23 21:05 Urine Color [place] (Yellow) 11/12/23 23:52 Urine Appearance Clear (CLEAR) 11/12/23 23:52 Urine pH 5 (5-7) 11/12/23 23:52 Ur Specific [place] 1.025 (1.005-1.030) 11/12/23 23:52 Urine Protein 2+ (Negative) H 11/12/23 23:52 Urine Glucose (UA) 2+ (Normal) H 11/12/23 23:52 Urine Ketones 1+ (Negative) H 11/12/23 23:52 Urine Blood 3+ (Negative) H 11/12/23 23:52 Urine Nitrate Negative (Negative) 11/12/23 23:52 Urine Bilirubin 1+ (Negative) H 11/12/23 23:52 Urine Urobilinogen 8 mg/dL (Negative) H 11/12/23 23:52 Ur Leukocyte Esterase Trace (Negative) H 11/12/23 23:52 Urine RBC 80-100 /hpf (0-2) H 11/12/23 23:52 Urine WBC 0-4 /hpf (0-5) H 11/12/23 23:52 Ur Squamous Epith Cells 0-4 /hpf (0-5) H 11/12/23 23:52 Amorphous Sediment 2+ /hpf 11/12/23 23:52 Urine Bacteria 1+ /hpf (NONE) H 11/12/23 23:52 Urine Opiates Screen Negative ng/mL (Negative) 11/12/23 23:52 Ur Barbiturates Screen Negative ng/mL (Negative) 11/12/23 23:52 Ur Phencyclidine Scrn Negative ng/mL (Negative) 11/12/23 23:52 Ur Amphetamines Screen Negative ng/mL (Negative) 11/12/23 23:52 U Benzodiazepines Scrn Positive ng/mL (Negative) H 11/12/23 23:52 Urine Cocaine Screen Negative ng/mL (Negative) 11/12/23 23:52 U Marijuana (THC) Screen Negative ng/mL (Negative) 11/12/23 23:52 Ethyl Alcohol 215 mg/dL (0-10) H 11/12/23 21:05 Serum Ketones Negative (Negative) 11/13/23 01:18 Influenza Type A Ag negative (Negative) 11/12/23 22:02 Influenza Type B Ag negative (Negative) 11/12/23 22:02 SARS-CoV-2 Ag (Rapid) negative (Negative) 11/12/23 22:02 Vitals Last Vital Signs Temp 99.0 F 11/15/23 07:09 Pulse 85 11/15/23 07:09 Resp 16 11/15/23 07:09 BP 170/64 11/15/23 07:09 Pulse Ox 95 11/15/23 07:09 O2 Del Method Room Air 11/15/23 07:09 Discharge Plan Discharge Patient Disposition: Home Condition: Stable Prescriptions: New folic acid 1 mg Tablet 1 mg PO DAILY Qty: 90 0RF thiamine mononitrate (vit B1) [Vitamin B-1 (mononitrate)] 100 mg Tablet 100 mg PO DAILY Qty: 90 0RF magnesium oxide 400 mg (241.3 mg magnesium) Tablet 400 mg PO BID Qty: 60 0RF cyanocobalamin (vitamin B-12) 1,000 mcg tablet 1,000 mcg PO DAILY Qty: 90 0RF Continued budesonide-formoterol [Symbicort] 160-4.5 mcg/actuation HFA aerosol inhaler 2 puff inhalation BID gabapentin 800 mg tablet 800 mg PO TID duloxetine 60 mg capsule,delayed release(DR/EC) 60 mg PO DAILY omeprazole 20 mg capsule,delayed release(DR/EC) 20 mg PO DAILY metformin 1,000 mg tablet 1,000 mg PO BID levothyroxine 50 mcg capsule 50 mcg PO DAILY metoprolol tartrate 25 mg tablet 25 mg PO BID furosemide 40 mg tablet 40 mg PO DAILY buspirone 30 mg tablet 30 mg PO TID buspirone 15 mg tablet 15 mg PO TID bupropion HCl 150 mg tablet extended release 24 hr 150 mg PO DAILY quetiapine 50 mg tablet 50 mg PO BEDTIME Discontinued glimepiride 2 mg tablet 2 mg PO QAM Rx Instructions: administer with breakfast ibuprofen 800 mg tablet 800 mg PO TID Discharge Orders: Discharge Order (Routine); Ordered 11/15/23 Ordered By: Cornelia Moreno Referrals: Charmaine Zaidi APN [Primary Care Provider] - 1-3 days Patient Instructions: Opioid Safety Discharge Attestations Time Spent in Discharge Care*: greater than 30 min Quality Metrics Clinical Quality Measures [ No reported AMI, CVA or VTE this stay] Coding Level of Care Code Acute Code for Chg Fwd Diagnoses Alcohol withdrawal F10.939 Transaminitis R74.01 Lactic acidosis E87.20 Metabolic acidosis E87.20 Alcoholic ketosis E88.89 Hypokalemia E87.6 Alcoholic hepatitis K70.10
--- NOTE | 2023-11-15 10:47 | PC.NURSE ---
Farley Catheter removed by [employer] Senior Test Engineer per protocol. Catheter intact. Tolerated well.
--- NOTE | 2023-11-15 11:18 | PC.SOCIAL ---
IMM Update pg 2 of IMM updated and reviewed w/ patient. Copy provided and copy dated, initialed and placed in chart.
[2023-11-15 11:30] LABS: Glucose Point of Care 179 mg/dL (70-110)
[2023-11-15 12:27] VITALS: BP 170/64; PULSE 85; RESP 16; TEMP 37.2; O2SAT 95
--- NOTE | 2023-11-15 12:28 | PC.NURSE ---
Pt urinated prior to discharge.
== END 2023-11-15 12:00 | disposition home or self-care (01) | DRG 897 ==
LOC: ER 11-13 03:11 → ICU 11-13 03:26 → MEDSURG 11-14 17:46
PROVIDERS: Admitting Provider Family Medicine; Emergency Provider Emergency Medicine; PCP Nurse Practitioner Family; Visit Provider Internal Medicine
DX: F10.231 Alcohol dependence with withdrawal delirium (principal); Z68.41 Body mass index [BMI] 40.0-44.9, adult; E87.29 Other acidosis; K70.10 Alcoholic hepatitis without ascites; J44.9 Chronic obstructive pulmonary disease, unspecified; I10 Essential (primary) hypertension; Y90.8 Blood alcohol level of 240 mg/100 ml or more; E11.9 Type 2 diabetes mellitus without complications; Z79.4 Long term (current) use of insulin; E03.9 Hypothyroidism, unspecified; E78.5 Hyperlipidemia, unspecified; E66.9 Obesity, unspecified; E87.6 Hypokalemia; E83.42 Hypomagnesemia; E86.0 Dehydration; K14.8 Other diseases of tongue; E56.9 Vitamin deficiency, unspecified; E88.89 Other specified metabolic disorders
CPT/HCPCS: 36415; 36416; 36600; 51702; 71045; 71275; 74176; 76700; 80048; 80051; 80053; 80306; 80307; 81001; 81003; 82009; 82140; 82247; 82248; 82330; 82805; 82962; 82977; 83605; 83690; 83735; 83880; 84100; 84145; 84443; 84484; 85025; 85378; 85610; 86140; 87040; 87086; 87426; 87804; 92523; 92610; 93005; 94664; 96372; 96374; 96375; 96376; 97116; 97162; 97530; 99285; C9113; J1644; J1815; J2060; J2185; J2405; J2560; J2930; J3411; J3475; J3490; J7030; Q9967